=== PATIENT | male | born 1940 | race Caucasian/White ===

== ENCOUNTER 2016-11-19 06:51 | Day surgery (SDC) | payer BC ==
[2016-11-12 15:33] VITALS: BMI 27.0
[~2016-11-19] VITALS: Ht 172.7 cm; Wt 81.8 kg
[~2016-11-19 06:51] MED LIST: ASCA500 PO; ASPI325T45 PO; ATOR-26 PO; CHRO500T5 PO; CIPROFLOXACIN / D5W 400 MG IV SCH; COEN200C4 PO; DUTA1CAP3 PO; IBUP-103 PO; LACTATED RINGER'S 1000ML 1,000 ML IV SCH; LISI-729 PO; MAGN400T6 PO; METO25TA3 PO; MULTCHW PO; NITR0.4S76 SL; OMEP20TA PO; REPA0.5T PO; TAMS0.4C38 PO; VTMD1000 PO
[2016-11-19 07:24] VITALS: BP 131/72; PULSE 61; TEMP 36.5; O2SAT 94; Ht 172.7 cm; Wt 81.8 kg
[2016-11-19] MEDS ORDERED: LIDOCAINE HCL 2% 2 ML VIAL (20MG/ML) ONE (07:42)
[2016-11-19] MEDS ORDERED: FENTANYL CITRATE INJ 50 MCG/1 ML 2 ML VIAL ONE (07:42)
[2016-11-19] MEDS ORDERED: ONDANSETRON INJ 2 MG/ML 2 ML VIAL ONE (07:42)
[2016-11-19] MEDS ORDERED: PROPOFOL IV EMULSION 10 MG/ML 20 ML VIAL IV ONE (07:42)
--- NOTE | 2016-11-19 08:09 | History & Physical Bridge Note ---
H&P Re-Evaluation Bridge Note: I have examined the patient, reviewed the History & Physical and in the interval since the performance of the History & Physical I have noted the following changes of clinical significance: No changes noted
[2016-11-19] MEDS ORDERED: DiphenhydrAMINE HCL 50 MG/ML VIAL ONE (08:44)
[2016-11-19] MEDS ORDERED: EpHEDrine SULFATE 50MG/5ML SYR ONE (09:04)
--- NOTE | 2016-11-19 09:18 | [facility] Post Operative Brief Note ---
Immediate Operative Summary Operative Date Nov 19, 2016. Pre-Operative Diagnosis Bladder Cancer Post-Operative Diagnosis Same as preoperative Procedure(s) Performed Cystoscopy, Bladder Biopsy, Fulgaration Surgeon Dr. Rohit Mccoy Foreign Car Mechanic Surgeon(s) None per surgeon Estimated Blood Loss 0ml Findings bladder tumor medial to left ureteral orifice Specimens A.) Bladder Biopsy
[2016-11-19] MEDS ORDERED: OXYC-57 PO (09:19)
[2016-11-19] MEDS ORDERED: PHEN-876 PO (09:19)
--- NOTE | 2016-11-19 09:20 | Discharge Instructions ---
Discharge Instructions Date of Service Nov 19, 2016. Visit Reason for Visit: Bladder Cancer Discharge Discharge Diagnosis / Problem: BLADDER CANCER Discharge Goals Goal(s): Therapeutic intervention Activity Recommendations Activity Limitations: resume your previous activity (TALKE IT EASY TODAY) Anesthesia . Post Anesthesia Instructions: If you have had General Anesthesia or IV Sedation: * Do not drive today. * Resume driving when surgeon permits. * Do not make important decisions or sign legal documents today. * Call surgeon for: 1. Temperature elevations greater than 101 degrees F. 2. Uncontrollable pain. 3. Excessive bleeding. 4. Persistent nausea and vomiting. 5. Medication intolerance (nausea, vomiting or rash). * For nausea and vomiting use only clear liquids such as: tea, soda, bouillon until nausea subsides, then gradually increase diet as tolerated. * If you have any concerns or questions, call your surgeon's office. If physician is unavailable and it is an emergency, call 911 or go to the nearest emergency room. . Diet Recommendations Recommended Home Diet: resume previous diet Procedures Procedures Performed: Cystoscopy, Bladder Biopsy, Fulgaration Pending Studies Studies pending at discharge: no Medical Emergencies . Who to Call and When: Medical Emergencies: If at any time you feel your situation is an emergency, please call 911 immediately. . Non-Emergent Contact Non-Emergency issues call your: Urologist . . "Provider Documentation" section prepared by Rohit Mccoy. [place] Drug Monitoring Program Search Results: patient reviewed within database
[2016-11-19] MEDS ORDERED: OXYCODONE/ACETAMINOPHEN 5-325 TAB PO PRN (09:30)
--- NOTE | 2016-11-19 09:58 | OPERATIVE REPORT ---
DATE OF OPERATION: 11/19/2016 PREOPERATIVE DIAGNOSIS: Recurrent bladder cancer. POSTOPERATIVE DIAGNOSIS: Same. PROCEDURE: Cystoscopy, bladder biopsy x1, and fulguration of papillary tumor. FINDINGS: Cystoscopic exam revealed normal anterior urethra. Prostatic fossa was moderately obstructing. He did have sort of a ball-valve median lobe. Bladder showed 1 to 2+ trabeculation. There was sort of a shag carpet type appearing tumor medial to the left ureteral orifice. Rest of the bladder was okay. SURGEON: Dr. Mccoy. ANESTHESIA: General. DRAINS: None. COMPLICATIONS: None. SPECIMENS: Bladder biopsy. INDICATIONS: The patient is a 76-year-old white male who on routine surveillance cystoscopy for bladder cancer was found to have a recurrence. He is being brought in now for biopsy and fulguration. PROCEDURE IN DETAIL: After the induction of an adequate general anesthetic and appropriate timeout, the patient was placed in the dorsal lithotomy position. Lower abdomen and genitalia were prepped with Hibiclens and draped in a sterile fashion. Using a 22-[place] cystoscope, routine cystoscopic exam was performed with the above-noted findings with the 30- and 70-degree lenses. Next, since the tumor was very close to the left ureteral orifice, an open-ended catheter was passed up the left ureteral orifice to make sure that I could identify it. One biopsy was taken of this papillary sort of shag carpet type appearing mucosa and then the area was fulgurated with a Bugbee electrode. After completing this, making sure that there was no injury to the left ureteral orifice, the open-ended catheter was removed. There was free drainage of urine from that side. Bladder was then drained. Cystoscope and sheath removed. All needle, sponge and instrument counts were correct at the end of the case. The patient tolerated the procedure well and went to the recovery room in stable condition. I attest to the content of the Intraoperative Record and any orders documented therein. Any exceptio ns are noted below.
[2016-11-19] MEDS ORDERED: FENTANYL CITRATE INJ 50 MCG/1 ML 2 ML VIAL IV PRN (10:00)
[2016-11-19] MEDS ORDERED: ATROPINE SULFATE 0.1 MG/ML 5ML SYR IV PRN (10:00)
[2016-11-19] MEDS ORDERED: EpHEDrine SULFATE INJ 50 MG/ML AMP IV PRN (10:00)
--- NOTE | 2016-11-19 10:00 | Anesthesiology Progress Note ---
Anesthesia Post Op Note Date & Time Nov 19, 2016 at 10:00 Vital Signs Pain Intensity: 0 Vital Signs Past 12 Hours Date Time Temp Pulse Resp B/P Pulse Ox O2 Delivery O2 Flow Rate FiO2 11/19/16 09:55 36.1 51 12 131/65 93 Room Air 11/19/16 09:45 52 12 124/65 93 Room Air 11/19/16 09:35 52 12 133/65 99 Mask 10 11/19/16 09:25 51 12 128/65 99 Mask 10 11/19/16 09:16 36.3 60 12 131/64 97 Mask 10 11/19/16 07:24 36.5 61 20 131/72 94 Room Air Notes Mental Status: alert / awake / arousable, participated in evaluation Pt Amnestic to Procedure: Yes Nausea / Vomiting: adequately controlled Pain: adequately controlled Airway Patency, RR, SpO2: stable & adequate BP & HR: stable & adequate Hydration State: stable & adequate Anesthetic Complications: no major complications apparent
[2016-11-19 10:05] VITALS: BP 139/65; PULSE 55; TEMP 36.6; O2SAT 94
[2016-11-19 10:35] VITALS: BP 117/59; PULSE 51; O2SAT 93
[2016-11-19 11:05] VITALS: BP 114/59; PULSE 57; TEMP 36.1; O2SAT 97
[2017-03-26] MEDS ORDERED: CHRO1TAB5 PO (10:28)
[2017-03-26] MEDS ORDERED: OMEP40CA41 PO (10:28)
[2017-04-22] MEDS ORDERED: OXYC-57 PO (08:59)
[2017-06-03] MEDS ORDERED: PHEN-876 PO (10:02)
[2017-06-03] MEDS ORDERED: OXYC-57 PO (10:02)
== END 2016-11-19 11:15 | disposition home or self-care (01) ==
LOC: C.ACU 06:51
PROVIDERS: ATTEND Urology
DX: C67.9 Malignant neoplasm of bladder, unspecified (principal); N32.89 Other specified disorders of bladder; I25.10 Atherosclerotic heart disease of native coronary artery without angina pectoris; R30.0 Dysuria; K21.9 Gastro-esophageal reflux disease without esophagitis; E11.9 Type 2 diabetes mellitus without complications; N40.1 Benign prostatic hyperplasia with lower urinary tract symptoms; N13.8 Other obstructive and reflux uropathy; I10 Essential (primary) hypertension; N30.00 Acute cystitis without hematuria

== ENCOUNTER → 2017-03-27 | Outpatient (CLI) | payer BC ==
[~2017-03-27] MED LIST changes: +CHRO1TAB5 PO; -CHRO500T5 PO; -CIPROFLOXACIN / D5W 400 MG IV SCH; -IBUP-103 PO; -LACTATED RINGER'S 1000ML 1,000 ML IV SCH; -OMEP20TA PO; +OMEP40CA41 PO; +OXYC-57 PO; +PHEN-876 PO
--- NOTE | 2017-03-27 10:56 | DIAGNOSTIC IMAGING REPORT ---
(CHEST) THORAX WITHOUT CLINICAL HISTORY: 76 years-old Male presenting with SOLITARY PULM NODULE. TECHNIQUE: Multidetector CT imaging of the chest was performed without the use of intravenous contrast. IV contrast: None. COMPARISON: 03/07/2016. CT DOSE: The estimated cumulative dose is 294.96 mGycm. FINDINGS: Supervisor Rod Placing topogram: Unremarkable. On soft tissue windows, multinodular enlargement of the thyroid, consistent with goiter. No axillary, supraclavicular, or mediastinal lymphadenopathy. Atherosclerosis of the aortic arch. Normal heart size. Coronary artery calcification. No pericardial or pleural effusion. Upper abdomen unremarkable. On lung windows, multiple pulmonary nodules again noted, few index below: -Right lower lobe 6 mm solid nodule (series 4 image 174), previously 6 mm -Left lower lobe 7 mm solid nodule (series 4 image 170), previously 6 mm -Left lower lobe 3 mm some solid nodule (series 4 image 164), previously 3 mm -Left upper lobe 5 mm solid nodule (series 4 image 115), previously 5 mm Numerous additional punctate nodules noted bilaterally. Airways patent. On bone windows, multilevel degenerative changes of the thoracic spine. IMPRESSION: 1. Stable bilateral pulmonary nodules measuring up to 7 mm which are essentially unchanged from prior. These are most likely benign. Follow-up per Fleischner Society 2017 recommendations below based on an initial start date of follow-up of September 2015. Please refer to below summary of Fleischner criteria recommendations for follow-up of incidental CT nodules (Jaye Hutton, Guidelines for management of small pulmonary nodules detected on CT scans: A statement from the Fleischner Society, Radiology 237: [phone].) SOLID NODULES Solitary nodule size: <6 mm * Low risk patients: no follow-up needed * high risk patients: optional CT at 12 months Solitary nodule size: 6-8 mm * Low risk patients: follow-up at 6-12 months, then consider further follow-up at 18-24 months * high risk patients: initial follow-up CT at 6-12 months and then at 18-24 months if no change Solitary nodule size: >8 mm * either low or high risk patients - consider follow-up CT at 3 months, and/or CT-PET, and/or biopsy Multiple nodules size: <6 mm * Low risk patients: no routine follow-up * high risk patients: optional CT at 12 months Multiple nodules size: 6-8 mm * Low risk patients: follow-up at 3-6 months, then consider further follow-up at 18-24 months * high risk patients: follow-up at 3-6 months, then at 18-24 months if no change Multiple nodules size: >8 mm * Low risk patients: follow-up at 3-6 months, then consider further follow-up at 18-24 months * high risk patients: follow-up at 3-6 months, then at 18-24 months if no change Note: newly detected indeterminate nodule in persons 35 years of age or older. * Low risk patients: minimal or absent history of smoking and/or other known risk factors * high risk patients: history of smoking or of other known risk factors (e.g. first degree relative with lung cancer, or exposure to asbestos, radon, uranium) * if a nodule up to 8 mm is partly solid or is ground glass further follow-up is required after 24 months to exclude possible slow growing adenocarcinoma (LEILA) SUBSOLID NODULES Solitary pure ground-glass nodule * nodule size <6 mm - no CT follow-up required * nodule size >=6 mm - follow-up CT at 6-12 months, then every 2 years until 5 years Solitary part-solid nodule * nodule size <6 mm - no CT follow-up required * nodule size >=6 mm - follow-up CT at 3-6 months. If unchanged, and solid component remains <6 mm, then annual follow-up for 5 years Multiple subsolid nodules * nodule size <6 mm - follow-up CT at 3-6 months, consider further follow-up at 2 and 4 years if stable * nodule size >=6 mm - follow-up CT at 3-6 months, subsequent management based on the most suspicious nodule(s) Electronically signed by: Sergey Dick M.D. 03/27/2017 10:55 AM Dictated Date/Time: 03/27/2017 10:47 AM
== END | disposition home or self-care (01) ==
LOC: C.CTS 10:21
PROVIDERS: ATTEND Family Medicine
DX: R91.8 Other nonspecific abnormal finding of lung field (principal)

== ENCOUNTER → 2017-04-10 | Outpatient (CLI) | payer BC ==
[2017-04-10 16:17] LABS: BASO % 0.3 %; BASO ABS # 0.02 K/uL (0-0.2); COMPLETE YES; EOS % 3.1 %; HEMATOCRIT 38.8 % (42-52); IG% 0.1 %; LYMPH % 21.5 %; LYMPH ABS # 1.45 K/uL (1.2-3.4); MEAN CELL VOLUME 86.2 fL (80-100); MEAN CORPUSCULAR HEMOGLOBIN 29.1 pg (25-34); MEAN CORPUSCULAR HGB CONC 33.8 g/dl (32-36); MEAN PLATELET VOLUME 10.2 fL (7.4-10.4); MONO % 13.9 %; NEUT % 61.1 %; PLATELET COUNT 142 K/uL (130-400); WHITE BLOOD COUNT 6.74 K/uL (4.8-10.8)
[2017-04-10 16:33] LABS: BLOOD UREA NITROGEN 29 mg/dl (7-18); BUN/CREATININE RATIO 19.1 (10-20); CALCIUM 8.8 mg/dl (8.5-10.1); CARBON DIOXIDE 29 mmol/L (21-32); CHLORIDE 108 mmol/L (98-107); GLUCOSE 132 mg/dl (70-99); POTASSIUM 4.1 mmol/L (3.5-5.1); SODIUM 142 mmol/L (136-145)
== END | disposition home or self-care (01) ==
LOC: C.LAB 15:26
PROVIDERS: ATTEND Urology
DX: C67.9 Malignant neoplasm of bladder, unspecified (principal)

== ENCOUNTER → 2017-04-22 | Day surgery (SDC) | payer BC ==
[2017-03-26 10:31] VITALS: BMI 27.0
[~2017-04-22] VITALS: Ht 172.7 cm; Wt 78.0 kg
[~2017-04-22] MED LIST changes: +ATROPINE SULFATE 0.1 MG/ML 5ML SYR IV PRN; +CIPROFLOXACIN / D5W 400 MG IV SCH; +DEXAMETHASONE SOD INJ 4 MG/ML VIAL ONE; +EpHEDrine SULFATE 50MG/5ML SYR ONE; +EpHEDrine SULFATE INJ 50 MG/ML AMP IV PRN; +FENTANYL CITRATE INJ 50 MCG/1 ML 2 ML VIAL ONE; +HYDROmorphone INJ 2 MG/ML SYR/VIAL IV PRN; +LACTATED RINGER'S 1000ML 1,000 ML IV SCH; +LIDOCAINE HCL 2% 2 ML VIAL (20MG/ML) ONE; +MIDAZOLAM HCL 1 MG/ML 2ML VIAL ONE; +ONDANSETRON INJ 2 MG/ML 2 ML VIAL IV PRN; +ONDANSETRON INJ 2 MG/ML 2 ML VIAL ONE; +OXYCODONE/ACETAMINOPHEN 5-325 TAB PO PRN; +PHENYLEPHRINE 100MCG/ML 5ML SYR IV PRN; +PHENYLEPHRINE 100MCG/ML 5ML SYR ONE; +PROPOFOL IV EMULSION 10 MG/ML 20 ML VIAL IV ONE
[2017-04-22 07:28] VITALS: BP 103/61; PULSE 74; TEMP 36.6; O2SAT 96; Ht 172.7 cm; Wt 78.0 kg
--- NOTE | 2017-04-22 08:59 | Anesthesiology Progress Note ---
Anesthesia Post Op Note Date & Time Apr 22, 2017 at 08:59 Vital Signs Pain Intensity: 0 Vital Signs Past 12 Hours Date Time Temp Pulse Resp B/P (MAP) Pulse Ox O2 Delivery O2 Flow Rate FiO2 04/22/17 07:28 36.6 74 20 103/61 (75) 96 Room Air Notes Mental Status: alert / awake / arousable, participated in evaluation Pt Amnestic to Procedure: Yes Nausea / Vomiting: adequately controlled Pain: adequately controlled Airway Patency, RR, SpO2: stable & adequate BP & HR: stable & adequate Hydration State: stable & adequate Anesthetic Complications: no major complications apparent
--- NOTE | 2017-04-22 09:01 | Discharge Instructions ---
Discharge Instructions Date of Service Apr 22, 2017. Visit Reason for Visit: Bladder Tumor Discharge Discharge Diagnosis / Problem: bladder tumor Discharge Goals Goal(s): Therapeutic intervention Activity Recommendations Activity Limitations: resume your previous activity (take it easy today) Anesthesia . Post Anesthesia Instructions: If you have had General Anesthesia or IV Sedation: * Do not drive today. * Resume driving when surgeon permits. * Do not make important decisions or sign legal documents today. * Call surgeon for: 1. Temperature elevations greater than 101 degrees F. 2. Uncontrollable pain. 3. Excessive bleeding. 4. Persistent nausea and vomiting. 5. Medication intolerance (nausea, vomiting or rash). * For nausea and vomiting use only clear liquids such as: tea, soda, bouillon until nausea subsides, then gradually increase diet as tolerated. * If you have any concerns or questions, call your surgeon's office. If physician is unavailable and it is an emergency, call 911 or go to the nearest emergency room. . Diet Recommendations Recommended Home Diet: resume previous diet Procedures Procedures Performed: Cystoscopy, Bladder biopsy and fulguration Pending Studies Studies pending at discharge: no Medical Emergencies . Who to Call and When: Medical Emergencies: If at any time you feel your situation is an emergency, please call 911 immediately. . Non-Emergent Contact Non-Emergency issues call your: Urologist Call Non-Emergent contact if: temperature is above 101.5, your pain is not controlled . . "Provider Documentation" section prepared by Rohit Mccoy. . [place] Drug Monitoring Program Search Results: patient reviewed within database
--- NOTE | 2017-04-22 09:13 | [facility] Operative Report ---
Operative Report Operative Date Apr 22, 2017. Pre-Operative Diagnosis Bladder Cancer Post-Operative Diagnosis same Procedure(s) Performed Cystoscopy, Bladder biopsy and fulguration Surgeon Dr. Mccoy Animal Husbandman Surgeon(s) none Estimated Blood Loss 0 ml Findings Cystoscopic exam showed a normal anterior urethra. Prostatic fossa was moderately obstructing. Bladder showed irregular pulse on the right lateral wall there was 2+ trabeculation with cellules both ureteral orifices were effluxing clear urine Specimens a. bladder tumor biopsy Drains none Anesthesia general Complication(s) None Disposition Recovery Room / PACU Indications Patient is a 76-year-old white male being brought in for bladder biopsy and fulguration of abnormal appearing bladder mucosa. 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 After the induction of an adequate general anesthetic and appropriate timeout patient was placed in the dorsal lithotomy position. Lower abdomen and genitalia were prepped with Hibiclens draped in a sterile fashion. Using a 22 [place] cystoscope routine cystoscopic exam was performed with the above-noted findings. Next the abnormal mucosa on the right lateral wall was biopsied with cold cup biopsy forceps and the entire area was fulgurated for hemostasis. Care was taken to avoid injury to the ureteral orifice. After fulgurating the entire abnormal area reinspection showed no bleeding patient's bladder was then drained cystoscope and sheath were removed. Patient tolerated the procedure well and was taken to the recovery room in stable condition. I attest to the content of the Intraoperative Record and any orders documented therein. Any exceptions are noted below.
[2017-04-22 09:45] VITALS: BP 112/59; PULSE 54; TEMP 36.4; O2SAT 94
[2017-04-22 10:15] VITALS: BP 119/56; PULSE 49; O2SAT 97
[2017-04-22 10:45] VITALS: BP 123/58; PULSE 54; TEMP 36.5; O2SAT 97
== END | disposition home or self-care (01) ==
LOC: C.ACU 06:48
PROVIDERS: ATTEND Urology
DX: C67.2 Malignant neoplasm of lateral wall of bladder (principal); N39.0 Urinary tract infection, site not specified; N52.9 Male erectile dysfunction, unspecified; R35.1 Nocturia; E11.9 Type 2 diabetes mellitus without complications; I25.10 Atherosclerotic heart disease of native coronary artery without angina pectoris; I51.9 Heart disease, unspecified; I10 Essential (primary) hypertension; K22.70 Barrett's esophagus without dysplasia; E78.5 Hyperlipidemia, unspecified; Z82.49 Family history of ischemic heart disease and other diseases of the circulatory system; Z83.3 Family history of diabetes mellitus; Z84.1 Family history of disorders of kidney and ureter

== ENCOUNTER → 2017-05-20 | Outpatient (CLI) | payer BC ==
[~2017-05-20] MED LIST changes: -ATROPINE SULFATE 0.1 MG/ML 5ML SYR IV PRN; -CIPROFLOXACIN / D5W 400 MG IV SCH; -DEXAMETHASONE SOD INJ 4 MG/ML VIAL ONE; -EpHEDrine SULFATE 50MG/5ML SYR ONE; -EpHEDrine SULFATE INJ 50 MG/ML AMP IV PRN; -FENTANYL CITRATE INJ 50 MCG/1 ML 2 ML VIAL ONE; -HYDROmorphone INJ 2 MG/ML SYR/VIAL IV PRN; -LACTATED RINGER'S 1000ML 1,000 ML IV SCH; -LIDOCAINE HCL 2% 2 ML VIAL (20MG/ML) ONE; -MIDAZOLAM HCL 1 MG/ML 2ML VIAL ONE; -ONDANSETRON INJ 2 MG/ML 2 ML VIAL IV PRN; -ONDANSETRON INJ 2 MG/ML 2 ML VIAL ONE; -OXYCODONE/ACETAMINOPHEN 5-325 TAB PO PRN; -PHENYLEPHRINE 100MCG/ML 5ML SYR IV PRN; -PHENYLEPHRINE 100MCG/ML 5ML SYR ONE; -PROPOFOL IV EMULSION 10 MG/ML 20 ML VIAL IV ONE
[2017-05-20 12:16] LABS: BASO % 0.5 %; BASO ABS # 0.03 K/uL (0-0.2); COMPLETE YES; HEMATOCRIT 40.4 % (42-52); IG% 0.2 %; LYMPH % 23.7 %; LYMPH ABS # 1.49 K/uL (1.2-3.4); MEAN CELL VOLUME 85.8 fL (80-100); MEAN CORPUSCULAR HEMOGLOBIN 29.3 pg (25-34); MEAN CORPUSCULAR HGB CONC 34.2 g/dl (32-36); MEAN PLATELET VOLUME 10.5 fL (7.4-10.4); MONO % 8.9 %; NEUT % 62.7 %; PLATELET COUNT 146 K/uL (130-400); RED BLOOD COUNT 4.71 M/uL (4.7-6.1); WHITE BLOOD COUNT 6.29 K/uL (4.8-10.8)
[2017-05-20 12:18] LABS: URINE APPEARANCE CLEAR (CLEAR); URINE BILIRUBIN NEG (NEG); URINE COLOR YELLOW; URINE NITRITE NEG (NEG); URINE PH 5.5 (4.5-7.5); URINE SPECIFIC GRAVITY 1.016 (1.000-1.030); UROBILINOGEN NEG (NEG)
[2017-05-20 12:24] LABS: MANUAL MICROSCOPIC REQUIRED? NO; REVIEW REQ? NO
[2017-05-20 12:48] LABS: BLOOD UREA NITROGEN 28 mg/dl (7-18); BUN/CREATININE RATIO 19.6 (10-20); CALCIUM 9.7 mg/dl (8.5-10.1); CARBON DIOXIDE 28 mmol/L (21-32); CHLORIDE 105 mmol/L (98-107); GLUCOSE 94 mg/dl (70-99); POTASSIUM 4.5 mmol/L (3.5-5.1); SODIUM 138 mmol/L (136-145)
== END | disposition home or self-care (01) ==
LOC: C.LAB 11:01
PROVIDERS: ATTEND Urology
DX: C67.9 Malignant neoplasm of bladder, unspecified (principal)

== ENCOUNTER → 2017-07-19 | Outpatient (CLI) | payer BC ==
[~2017-07-19] MED LIST changes: -ASCA500 PO; -MULTCHW PO; +NITR0.1S SL; -NITR0.4S76 SL; +NUTR1TAB3 PO; -OXYC-57 PO; -PHEN-876 PO
== END | disposition home or self-care (01) ==
LOC: C.LABSPEC 15:42
PROVIDERS: ATTEND Nurse Practitioner Adult Health
DX: C67.9 Malignant neoplasm of bladder, unspecified (principal)

== ENCOUNTER → 2017-09-26 | Outpatient (CLI) | payer BC | END | disposition home or self-care (01) | LOC: C.PATHSPEC 17:04 | PROVIDERS: ATTEND Urology | DX: N40.1 Benign prostatic hyperplasia with lower urinary tract symptoms (principal) ==

== ENCOUNTER → 2018-01-09 | Outpatient (CLI) | payer BC ==
[~2018-01-09] MED LIST changes: +ASPECOTC PO; -ASPI325T45 PO; -CHRO1TAB5 PO; -MAGN400T6 PO
== END | disposition home or self-care (01) ==
LOC: C.PATHSPEC 10:41
PROVIDERS: ATTEND Urology
DX: N40.0 Benign prostatic hyperplasia without lower urinary tract symptoms (principal)

== ENCOUNTER → 2018-01-27 | Day surgery (SDC) | payer BC ==
[2018-01-14 15:03] VITALS: Ht 172.7 cm; Wt 77.3 kg
[~2018-01-27] VITALS: Ht 172.7 cm; Wt 77.3 kg
[~2018-01-27] MED LIST changes: +COEN1CAP37 PO; -COEN200C4 PO; +LIDOCAINE HCL 2% 2 ML VIAL (20MG/ML) ONE; +MIDAZOLAM HCL 1 MG/ML 2ML VIAL ONE; +OMEP20TA PO; -OMEP40CA41 PO; +ONDANSETRON INJ 2 MG/ML 2 ML VIAL ONE; +PROPOFOL IV EMULSION 10 MG/ML 20 ML VIAL ONE; -REPA0.5T PO; +REPA1TAB8 PO
--- NOTE | 2018-01-27 14:01 | Endo History and Physical ---
History & Physical Date of Service: January 27, 2018. Chief Complaint: Damon's esophagus Referring Physician: Pb Han History of Present Illness 77 yo CM who presents for EGD secondary to Damon's Esophagus. Past Medical History Diabetes, Angioplasty/Stent, Male Genitourinary Prob., Reflux, High Cholesterol , Hypertension Past Surgical History Hx Cardiac Surgery: Yes (CARDIAC CATH 1 STENT-1997, 2010 NO STENT) Hx Internal Defibrillator: No Hx Pacemaker: No Hx Abdominal Surgery: Yes (UMBILICAL FISTULA REPAIR) Hx of Implantable Prosthesis: No Hx Post-Op Nausea and Vomiting: No Hx Cancer Surgery: No Hx Thoracic Surgery: No Hx Orthopedic: Yes (LUMBAR SURG ) Hx Urinary Tract Surgery: Yes (TURBT X5) Family History None Social History Smoking Status: Never Smoker Hx Substance Use: No Hx Alcohol Use: No Allergies Coded Allergies: Eggplant (Verified Allergy, Intermediate, HIVES, 01/27/18) [place] (Verified Allergy, Intermediate, HIVES, 01/27/18) Olmesartan (Verified Adverse Reaction, Intermediate, DIZZINESS, 01/27/18) Amoxicillin (Verified Adverse Reaction, Mild, DIARRHEA, 01/27/18) Erythromycin (Verified Adverse Reaction, Mild, DIARRHEA, 01/27/18) Sulfa Antibiotics (Verified Adverse Reaction, Mild, DIARRHEA, 01/27/18) Current Medications Reported Home Medications Medications Dose Route/Sig Max Daily Dose Days Date Category Dose Instructions Omeprazole 20 Mg Tab 1 Tab PO DAILY 90 01/14/18 Reported Co Q-10 (Coenzyme Q10 (Ubidecarenone)) 200 Mg Cap 1 Cap PO DAILY 01/14/18 Reported Repaglinide 1 Mg Tab 1 Tab PO TIDM 01/14/18 Reported Bladder 2.2 (Nutritional Supplements) 1 Tab Tab 1 Tab PO BID 07/10/17 Reported Dutasteride 0.5 Mg Cap 1 Cap PO HS 11/12/16 Reported Vitamin D3 (Cholecalciferol) 1,000 Inter.unit Tab 2,000 Interunit PO QPM 11/12/16 Reported Zestril (Lisinopril) 5 Mg Tab 2.5 Mg PO HS 06/18/16 Reported Flomax (Tamsulosin Hcl) 0.4 Mg Cap 0.8 Mg PO HS 05/12/15 Reported Aspirin 325 Mg Tab 325 Mg PO QAM 05/12/15 Reported PER PT TO CONTINUE TO TAKE PER CARDIOLOGY Nitroglycerin Lingual (Nitroglycerin) 0.4 Mg/[place] Spr 1 [place] SL DIRECTED 03/10/15 Reported Lipitor (Atorvastatin Calcium) 80 Mg Tab 80 Mg PO QPM 01/05/15 Reported Toprol-Xl (Metoprolol Succinate) 25 Mg Tabcr 25 Mg PO QAM 07/26/14 Reported Vital Signs Weight (Kilograms): 77.27 Height (Feet): 5 Height (Inches): 8 Date Time Temp Pulse Resp B/P (MAP) Pulse Ox O2 Delivery O2 Flow Rate FiO2 01/27/18 13:29 36.5 56 18 125/71 (89) 97 Room Air Physical Exam General Appearance: WD/WN, no apparent distress Respiratory/Chest: Auscultation: breath sounds normal Cardiovascular: Heart Auscultation: RRR Abdomen: Bowel Sounds: normal Inspection & Palpation: soft, non-distended, no tenderness, guarding & rebound Assessment and Plan Assessment: 77 yo CM who presents for EGD secondary to Damon's Esophagus. Plan: Proceed with EGD.
--- NOTE | 2018-01-27 14:33 | GI REPORT ---
Patient Name: Kasi Costello Procedure Date: 01/27/2018 1:41 PM Date of : 1940 Admit Type: Outpatient Age: 77 Gender: Male Attending MD: Wayne Sosa DO Procedure: Upper GI endoscopy Providers: Wayne Sosa DO Referring MD: Michael Snyder Indications: Follow-up of Damon's esophagus Medicines: Monitored Anesthesia Care Complications: No immediate complications. Estimated Blood Loss: Estimated blood loss: none. Procedure: Pre-Anesthesia Assessment: - Prior to the procedure, a History and Physical was performed, and patient medications and allergies were reviewed. The patient's tolerance of previous anesthesia was also reviewed. The risks and benefits of the procedure and the sedation options and risks were discussed with the patient. All questions were answered, and informed consent was obtained. Prior Anticoagulants: The patient has taken aspirin, last dose was 1 day prior to procedure. ASA Grade Assessment: III - A patient with severe systemic disease. After reviewing the risks and benefits, the patient was deemed in satisfactory condition to undergo the procedure. After obtaining informed consent, the endoscope was passed under direct vision. Throughout the procedure, the patient's blood pressure, pulse, and oxygen saturations were monitored continuously. The Scope was introduced through the mouth, and advanced to the second part of duodenum. The upper GI endoscopy was accomplished without difficulty. The patient tolerated the procedure well. Findings: There were esophageal mucosal changes suggestive of short-segment Damon's esophagus present at the gastroesophageal junction. The maximum longitudinal extent of these mucosal changes was 1 cm in length. Mucosa was biopsied with a cold forceps for histology. One specimen bottle was sent to pathology. The entire examined stomach was normal. The examined duodenum was normal. Impression: - Esophageal mucosal changes suggestive of short-segment Damon's esophagus. Biopsied. - Normal stomach. - Normal examined duodenum. Recommendation: - Resume previous diet. - Continue present medications. - Await pathology results. - Return to primary care physician as previously scheduled. Wayne Sosa DO 01/27/2018 2:32:42 PM This report has been signed electronically. Note Initiated On: 01/27/2018 1:41 PM Number of Addenda: 0 I attest to the content of the Intraoperative Record and orders documented therein, exceptions below {[id number]}
--- NOTE | 2018-01-27 14:52 | Anesthesiology Progress Note ---
Anesthesia Post Op Note Date & Time January 27, 2018 at 14:52 Vital Signs Pain Intensity: 0 Vital Signs Past 12 Hours Date Time Temp Pulse Resp B/P (MAP) Pulse Ox O2 Delivery O2 Flow Rate FiO2 01/27/18 14:45 52 16 105/48 (67) 93 Room Air 3 01/27/18 14:30 54 16 100/45 (63) 97 Oxymask 3 01/27/18 13:29 36.5 56 18 125/71 (89) 97 Room Air Notes Mental Status: alert / awake / arousable, participated in evaluation Pt Amnestic to Procedure: Yes Nausea / Vomiting: adequately controlled Pain: adequately controlled Airway Patency, RR, SpO2: stable & adequate BP & HR: stable & adequate Hydration State: stable & adequate Anesthetic Complications: no major complications apparent
[2018-01-27 15:00] VITALS: BP 106/58; PULSE 55; O2SAT 95
--- NOTE | 2018-01-27 15:21 | Discharge Instructions ---
Endoscopy Patient Instructions Date / Procedure(s) Performed January 27, 2018. EGD Allergy Information Coded Allergies: Eggplant (Verified Allergy, Intermediate, HIVES, 01/27/18) [place] (Verified Allergy, Intermediate, HIVES, 01/27/18) Olmesartan (Verified Adverse Reaction, Intermediate, DIZZINESS, 01/27/18) Amoxicillin (Verified Adverse Reaction, Mild, DIARRHEA, 01/27/18) Erythromycin (Verified Adverse Reaction, Mild, DIARRHEA, 01/27/18) Sulfa Antibiotics (Verified Adverse Reaction, Mild, DIARRHEA, 01/27/18) Discharge Date / Findings January 27, 2018. Damon's esophagus s/p biopsies Medication Instructions Stopped Medication(s): Aspirin 325mg taken on 01/26/18 OK to resume all medications today as prescribed Reported Home Medications Medications Dose Route/Sig Max Daily Dose Days Date Category Dose Instructions Omeprazole 20 Mg Tab 1 Tab PO DAILY 90 01/14/18 Reported Co Q-10 (Coenzyme Q10 (Ubidecarenone)) 200 Mg Cap 1 Cap PO DAILY 01/14/18 Reported Repaglinide 1 Mg Tab 1 Tab PO TIDM 01/14/18 Reported Bladder 2.2 (Nutritional Supplements) 1 Tab Tab 1 Tab PO BID 07/10/17 Reported Dutasteride 0.5 Mg Cap 1 Cap PO HS 11/12/16 Reported Vitamin D3 (Cholecalciferol) 1,000 Inter.unit Tab 2,000 Interunit PO QPM 11/12/16 Reported Zestril (Lisinopril) 5 Mg Tab 2.5 Mg PO HS 06/18/16 Reported Flomax (Tamsulosin Hcl) 0.4 Mg Cap 0.8 Mg PO HS 05/12/15 Reported Aspirin 325 Mg Tab 325 Mg PO QAM 05/12/15 Reported PER PT TO CONTINUE TO TAKE PER CARDIOLOGY Nitroglycerin Lingual (Nitroglycerin) 0.4 Mg/[place] Spr 1 [place] SL DIRECTED 03/10/15 Reported Lipitor (Atorvastatin Calcium) 80 Mg Tab 80 Mg PO QPM 01/05/15 Reported Toprol-Xl (Metoprolol Succinate) 25 Mg Tabcr 25 Mg PO QAM 07/26/14 Reported Provider Instructions Activity Restrictions - No exercising or heavy lifting for 24 hours. - Do not drink alcohol the day of the procedure. - Do not drive a car or operate machinery until the day after the procedure. - Do not make any important decisions or sign important papers in 24 hours after the procedure. Following Day: - Return to full activity which may include returning to work/school. Diet Start your diet with liquids and light foods (jello, soup, juice, toast). Then eat your usual diet if not nauseated. Treatment For Common After Affects For mild abdominal pain, bloating, or excessive gas: - Rest - Eat lightly - Lie on right side Follow-Up Information Follow-up with Pb Han as scheduled Anesthesia Information What You Should Know You have had a procedure that required some medicine to reduce anxiety and discomfort. This treatment is called moderate sedation. After receiving the treatment, you may be sleepy, but you will be able to breathe on your own. The effects of the treatment may last for several hours. Follow these instructions along with Activity/Diet recommendations noted above: * Do NOT do anything where dizziness or clumsiness would be dangerous. * Rest quietly at home today, then you can be up and about tomorrow. * Have a responsible person stay with you the rest of today. * You may have had an I.V. today. If so, you may take the dressing off later today. Recommendations Call your doctor if: * Trouble breathing * Continuous vomiting for more than 24 hours * Temperature above 101 degrees * Severe abdominal pain or bloating * Pain not relieved by pain medicine ordered * There is increased drainage or redness from any incision * A large amount of rectal bleeding greater than 2-3 tablespoons. (If you had a polyp/s removed or have hemorrhoids, a small amount of blood - from the rectum is to be expected.) * You have any unanswered questions or concerns. IN THE EVENT OF A SERIOUS EMERGENCY, GO TO THE NEAREST EMERGENCY ROOM Your discharge instructions were prepared by provider Wayne Sosa. Patient Instructions Signature Page Kasi Costello Patient (or Guardian) Signature/Date: I have read and understand the instructions given to me by my caregivers. Caregiver/RN/Doctor Signature/Date: The above-named patient and/or guardian has received patient instructions on this date. + Original Patient Signature Page (only) stays with chart. Please make copy for patient.
== END | disposition home or self-care (01) ==
LOC: C.GI 12:54
PROVIDERS: ATTEND Internal Medicine
DX: Z09 Encounter for follow-up examination after completed treatment for conditions other than malignant neoplasm (principal); I25.10 Atherosclerotic heart disease of native coronary artery without angina pectoris; E11.9 Type 2 diabetes mellitus without complications; Z88.2 Allergy status to sulfonamides; Z88.1 Allergy status to other antibiotic agents; I10 Essential (primary) hypertension; E78.00 Pure hypercholesterolemia, unspecified; Z98.890 Other specified postprocedural states; Z91.018 Allergy to other foods; Z79.899 Other long term (current) drug therapy

== ENCOUNTER → 2018-04-17 | Outpatient (CLI) | payer BC ==
[~2018-04-17] MED LIST changes: +DUTA1CAP17 PO; -DUTA1CAP3 PO; -LIDOCAINE HCL 2% 2 ML VIAL (20MG/ML) ONE; -MIDAZOLAM HCL 1 MG/ML 2ML VIAL ONE; -ONDANSETRON INJ 2 MG/ML 2 ML VIAL ONE; -PROPOFOL IV EMULSION 10 MG/ML 20 ML VIAL ONE
== END | disposition home or self-care (01) ==
LOC: C.PATHSPEC 10:23
PROVIDERS: ATTEND Urology
DX: C67.9 Malignant neoplasm of bladder, unspecified (principal)

== ENCOUNTER 2019-07-03 11:52 | Observation (INO) ==
[2019-07-03] MEDS ORDERED: HEPARIN (PORCINE) 1000 UNIT/ML 10 ML (CATH LAB USE ONLY) ONE (11:57)
[2019-07-03] MEDS ORDERED: NiCARDipine HCL INJ 2.5 MG/ML 10 ML AMP ONE (11:57)
[2019-07-03] MEDS ORDERED: fentaNYL citrate 100 MCG/2 ML VIAL ONE (11:58)
[2019-07-03] MEDS ORDERED: MIDAZOLAM HCL 1 MG/ML 2ML VIAL ONE (11:58)
[2019-07-03] MEDS ORDERED: NITROGLYCERIN/D5W 100MCG/ML 20ML SYR ONE (11:58)
--- NOTE | 2019-07-03 12:31 | Pre Anesthesia Assessment ---
Date of Service July 03, 2019 Pre Sedation Assessment Vital Signs Temp Pulse Resp BP Pulse Ox 07/03/19 12:00 98.1 F 53 L 16 138/57 L 99 Cardiovascular RRR, no murmur, no edema Respiratory normal respiratory effort, lungs clear to auscultation Pre-Sedation Airway Assessment Smoking Status: Never smoker Hx Sleep Apnea: No Hx Difficult Intubation: No Short, Thick Neck: No Oral Cavity: + WNL Mallampati Class: III ASA: ASA3 NPO Status Date of Last Intake of Fluids: 07/03/19 Time of Last Intake of Fluids: 06:30 Last Oral Intake of Fluids Comment: sips with pills Date of Last Intake of Solid Food: 07/02/19 Time of Last Intake of Solid Foods: 21:30 Procedure Planning Contraindications for Sedation: none Current Medications Reviewed: Yes Notes The planned sedation has been discussed with the patient. Informed Consent was obtained. I have identified the patient, determined the appropriateness of sedation and have assessed the patient immediately prior to the procedure. All medicine(s) and interventions are by my order.
--- NOTE | 2019-07-03 12:34 | History & Physical Report ---
Date of Service July 03, 2019 Assessment & Plan (1) CAD (coronary artery disease): Proceed with cardiac catheterization. History of Present Illness Primary Care Provider: Pb Han DO Mr. 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 Patient with exertional chest symptoms primarily with exercising on stationary bike. Yesterday underwent stress test and was unable to go several minutes before developed limiting chest pain and ST depressions. Allergies Allergy/AdvReac Type Severity Reaction Status Date / Time peach Allergy Intermediate HIVES Verified 07/02/19 16:07 ciprofloxacin [From Cipro] Allergy Blister Verified 07/02/19 16:07 olmesartan AdvReac Intermediate DIZZINESS Verified 07/02/19 16:07 amoxicillin AdvReac Mild DIARRHEA Verified 07/02/19 16:07 erythromycin base AdvReac Mild DIARRHEA Verified 07/02/19 16:07 Sulfa (Sulfonamide AdvReac Mild DIARRHEA Verified 07/02/19 16:07 Antibiotics) Eggplant Allergy Intermediate HIVES Uncoded 07/02/19 16:07 Home Medications Home Medications Medication Instructions Recorded Confirmed Type metoprolol succinate 25 mg PO QAM #30 tab 07/26/14 07/02/19 History nitroglycerin 400 mcg SUBLINGUAL DAILY PRN #0 03/10/15 07/02/19 History aspirin 325 mg PO QAM #0 05/12/15 07/02/19 History tamsulosin [Flomax] 0.8 mg PO HS #0 cap 05/12/15 07/02/19 History lisinopril 2.5 mg PO HS #0 tab 06/18/16 07/02/19 History cholecalciferol (vitamin D3) 1,000 unit PO PM #0 11/12/16 07/02/19 History dutasteride 0.5 mg PO HS #0 11/12/16 07/02/19 History coenzyme Q10 200 mg PO QAM #0 01/14/18 07/02/19 History omeprazole 20 mg PO QAM 90 Days #90 tab 01/14/18 07/02/19 History repaglinide [Prandin] 1 mg PO TID #0 01/14/18 07/02/19 History atorvastatin 80 mg tablet 80 mg PO PM #90 tab 05/07/19 07/02/19 Rx xtmqjvac-ojoy-bbqvy acid 200 1 tab PO BID #0 tab 05/27/19 07/02/19 History mcg-lycopene 5 mg-boron 250 mcg tablet Past Med/Surg History Social History Preferred Language: Spanish Communication Ability: Effective Contact Lens Lathe Operator Required: No Beliefs That Will Affect Care: None Current Living Situation: Alone current occupational status: retired Other Information That Helps Us Care for You: No Feels Safe at Home: Yes Safety Concerns: Feels Safe At This Time Smoking Status: Never smoker Second Hand Exposure: Yes ; Hx Alcohol Use: No Hx Substance Use: No Review of Systems All systems reviewed & are unremarkable except as noted in HPI & below Physical Exam Physical Exam: General: Comfortable, no acute distress HEENT: Sclerae anicteric, mucous membranes moist Lungs: Clear to auscultation bilaterally, no rhonchi or wheezes Cardiac: Regular rate and rhythm, no murmurs. No JVD. Abdomen: Soft, nontender, nondistended, positive bowel sounds. Extremities: Warm, well perfused, no edema. 2+ radial pulses Skin: No rashes or lesions. Neuro: Nonfocal Psych: Alert orient x3, normal affect and mood ASA Classification ASA ASA3 Results & Data Vital Signs (Past 12 Hours) Vital Signs Temp Pulse Resp BP Pulse Ox 07/03/19 12:00 98.1 F 53 L 16 138/57 L 99
[2019-07-03] MEDS ORDERED: CLOPIDOGREL BISULFATE 300 MG TAB ONE (13:22)
--- NOTE | 2019-07-03 14:00 | Post Anesthesia Assessment ---
Date of Service July 03, 2019 Post Sedation Assessment Vital Signs Temp Pulse Resp BP Pulse Ox 07/03/19 13:40 50 L 20 122/61 92 07/03/19 13:35 50 L 20 128/59 L 92 07/03/19 13:30 50 L 20 118/67 92 07/03/19 12:00 98.1 F 53 L 16 138/57 L 99 Recovery Score Activity: Moves 4 extremities Respiration: Deep Breath/Cough Circulation: +/-20% PreAnes Value Consciousness: Fully Awake Oxygen Saturation: O2 needed for >90% Post Anesthesia Score: 6 Discharge Sedation Level of Care: Fast Track Phase II Post Sedation Plan On clinical assessment, the patient appears to have tolerated the sedation without complications. Patient is recovering as anticipated. Patient will continue to be monitored by nursing and may be discharged when sedation discharge criteria are met per below protocol. Upon Completions of procedure and additional 15 minutes continue every 5 minute vital signs and the P.A.R. score; then discharge to a Phase I or Fast Track to Phase II per the following guidelines: * Discharge Patient to appropriate Phase II area if PAR is 8 or greater or return to pre- procedure baseline. The post - procedure orders will be as directed. * If PAR score is less than 8 or not return to pre-procedure baseline then patient will follow Phase I monitoring till PAR is reached for Phase II. The Phase I may be done in procedure room or may call to secure a Phase I area. * If naloxone or flumazenil are used for reversal, hold in Phase I for continued monitoring from when last reversal dose was given for a minimum of 60 minutes or longer pending the nurse and/or physician discretion of patient condition before discharge to Phase II. Please call the Sedation Physician to re-evaluate and complete post-note for discharge to Phase II area. Do NOT discharge from procedure sedation or Phase 1 until post- sedation evaluation note is complete by procedure /sedation MD Sedation Discharge Instructions to be given to the patient at discharge to home.
[2019-07-03] MEDS ORDERED: ONDANSETRON INJ 2 MG/ML 2 ML VIAL IV PRN (14:02)
--- NOTE | 2019-07-03 14:02 | Post Operative Brief Note ---
Cardiology Brief Post Op Date of Surgery July 03, 2019 Pre & Post Diagnosis Operation Date: 07/03/19 12:30 <No data on this case meets the specified criteria> Procedure -- Analysis Director Domingo Thakur MD R And D Lab Technician [place] Estimated Blood Loss 15 Findings Consistent with Post-Op Diagnosis Severe single vessel disease - 90+% diffuse proximal to mid LAD with mid LAD in-stent restenosis. Successful PCI with single STEFANIE (2.75 x 33 Xience; post-dilated with 3.0 NC). Anesthesia Type RN Sedation Complications none Disposition Disposition: PCU
[2019-07-03] MEDS ORDERED: GLUCAGON FOR INJ 1 MG VIAL SQ PRN (14:06)
[2019-07-03] MEDS ORDERED: CARBOHYDRATES FOR HYPOGLYCEMIA PO PRN (14:06)
[2019-07-03] MEDS ORDERED: DEXTROSE 50% 50 ML SYRINGE IV PRN (14:06)
[2019-07-03] MEDS ORDERED: GLUCOSE 10 TABS/TUBE PO PRN (14:06)
[2019-07-03] MEDS ORDERED: GLUCOSE 40% GEL 15 GM TUBE PO PRN (14:06)
[2019-07-03] MEDS ORDERED: SODIUM CHLORIDE 0.9% 1000ML 1,000 ML IV SCH (14:15)
--- NOTE | 2019-07-03 15:21 | Cardiac Catheterization ---
[facility] Data: Senior Industrial Engineer Cardiac Status Clinical evaluation leading to the procedure CAD Presenation: Positive Stress Test Anginal Classification: CCS III Heart Failure: No Cardiogenic Shock within 24 Hours: No Cardiac Arrest within 24 Hours: No Imaging Studies Past 6 Months: Yes Stress Studies Past 6 Months: Yes Stress Echocardiogram: Yes - Positive and Risk/Extent of Ischemia (High) Diagnostic Physicians Name: Domingo Thakur MD Status: Elective Closure Device Percutaneous Entry Location: Radial Closure Device: Radial Band Recommendations: PCI without planned CABG PCI Indication: + Stress Test Lesion Segment Name: proximal to mid LAD Culprit Artery: Yes Stenosis Prior to Rx (%): 90 Chronic Total Occlusion: No IVUS: No FFR: No Pre-Procedure DEREK Flow: 3 Previously Treated Lesion: Timeframe: greater than 2 years Treated with Stent: Yes In-Stent Restenosis: Yes In-Stent Thrombosis: No Stent Type: Non-STEFANIE Yes Lesion Length (mm): 25 Thrombus Present: No Bifurcation Lesion: No Guidewire Across Lesion: Stenosis Post-Procedure (%): 0 Post-Procedure DEREK Flow: 3 Devices(s) Deployed: Yes Yes Intraprocedure Events Significant Disection: No Perforation: No Cardiac Cath Procedure Full Procedure Date July 03, 2019 Pre-Procedure Diagnosis Pre-Procedure Diagnosis: Positive Stress Test AUC Score AUC Score: 7 Post-Procedure Diagnosis Post-Procedure Diagnosis: Severe CAD and Successful PCI Procedure(s) Performed Procedure(s) Performed: Coronary Angiography, Left Heart Cath and Drug Eluting Stent Vocal Music Teacher Domingo Thakur MD Paint Roller Cover Machine Setter(s) Avinash Estimated Blood Loss Estimated Blood Loss: 15 Medication(s) Medication(s): Clopidogrel, Fentanyl, Heparin, Lidocaine 1%, Nicardipine, Nitroglycerin and Versed Summary of Findings Indication: Exertional chest pain, abnormal stress test Access: 6 Fr right radial artery Catheters: [place], JR4, EBU 3.5 guide Findings: LM -20% distal disease at bifurcation LAD -moderate caliber vessel, calcified proximally with diffuse 60% disease, focal 90% in-stent restenosis in mid segment stent at takeoff of small second diagonal. 40% mid segment disease just after stent. 50% latemid stenosis just after the third diagonal. Distal luminal irregularities as wraps around apex. Moderate caliber first diagonal without significant disease. Circumflex -large caliber vessel, proximal to mid luminal irregularities. Large OM 2 without significant disease. RCA -dominant, moderate caliber vessel, 30% mid segment disease, distal luminal irregularities LVEDP -10 -- PCI -- Antithrombotic therapy: Heparin, clopidogrel Procedure: Left main cannulated with EBU 3.5 guide Flour Broker 50 wire passed across lesion into distal vessel Proximal to mid LAD lesion predilated with 2.5 compliant balloon Dilated lesion stented with 2.75 x 33 mm Xience Shanti drug-eluting stent Stent post-dilated with 3.0 noncompliant balloon IC vasodilators administered for spasm Post procedure DEREK 3 flow, stent well expanded with minimal residual stenosis and no apparent cardiac complications. Arterial Closure: TR Summary: 1. Severe single vessel coronary artery disease -Diffuse proximal LAD disease with 90% in-stent mid LAD restenosis. Residual moderate latemid LAD disease. 2. Normal intracardiac filling pressure 3. Successful PCI of proximal to mid LAD with single drug-eluting stent overlapping proximal aspect of prior stent (2.75 x 33 mm Xience Shanti; postdilated with 3.0 NC). Recommendations: To PCU for continued monitoring Loaded with Clopidogrel 600 Mg in in the Senior Industrial Engineer Continue dual-antiplatelet therapy for at least 6 months Continue statin, and ASCVD risk factor modification Consult cardiac Rehab Hemodynamics Rest Ao:: -- Final Ao: -- LV: -- Recommendations Recommendations: PCI without planned CABG Specimens Specimens: None Anesthesia moderate Procedural Complication(s) None Disposition PCU I attest to the content of the Intraoperative Record and any orders documented therein. Any exceptions are noted below.
[2019-07-03] MEDS: INSULIN ASPART 100 UNITS/ML 3 ML PEN SC SCH ×2 (16:45→19:46)
[2019-07-03] MEDS: REPAGLINIDE 1 MG TAB PO SCH (16:45)
[2019-07-03] MEDS ORDERED: CHOLECALCIFEROL 1,000 UNITS TAB PO SCH (21:00)
[2019-07-03] MEDS ORDERED: [UNRECOGNIZED DRUG - OTHER] PO SCH (21:00)
[2019-07-03] MEDS ORDERED: LISINOPRIL 2.5 MG TAB PO SCH (21:00)
[2019-07-03] MEDS ORDERED: ATORVASTATIN 40 MG TAB PO SCH (21:00)
[2019-07-03] MEDS ORDERED: TAMSULOSIN HCL 0.4 MG CAP PO SCH (21:00)
[2019-07-04 06:18] LABS: Basophils # (auto) 0.01 K/uL (0-0.2); Basophils % (auto) 0.1 %; Eosinophils # (auto) 0.21 K/uL (0-0.5); Eosinophils % (auto) 3.1 %; Hematocrit (blood only) 37.7 % (42-52); Immature Granulocytes # (auto) 0.01 K/uL (0.00-0.02); Immature Granulocytes % (auto) 0.1 %; Lymphocytes # (auto) 1.32 K/uL (1.2-3.4); Lymphocytes % (auto) 19.3 %; Mean Corpuscular Hemoglobin 29.7 pg (25-34); Mean Corpuscular Hgb Conc 34.5 g/dL (32-36); Mean Corpuscular Volume 86.1 fL (80-100); Mean Platelet Volume 10.1 fL (7.4-10.4); Monocytes # (auto) 0.87 K/uL (0.11-0.59); Monocytes % (auto) 12.7 %; Neutrophils # (auto) 4.41 K/uL (1.4-6.5); Neutrophils % (auto) 64.7 %; Platelet Count 100 K/uL (130-400); RDW Standard Deviation 41.3 fL (36.4-46.3); Red Blood Count 4.38 M/uL (4.7-6.1); White Blood Count 6.83 K/uL (4.8-10.8)
[2019-07-04] MEDS: REPAGLINIDE 1 MG TAB PO SCH (07:38)
[2019-07-04] MEDS: INSULIN ASPART 100 UNITS/ML 3 ML PEN SC SCH (07:40)
[2019-07-04] MEDS ORDERED: METOPROLOL SUCC 25MG EXT REL TAB PO SCH (09:00)
[2019-07-04] MEDS ORDERED: CLOPIDOGREL BISULFATE 75 MG TAB PO SCH (09:00)
[2019-07-04] MEDS ORDERED: NON-FORMULARY MEDICATION (Coenzyme Q10 200 MG) PO SCH (09:00)
[2019-07-04] MEDS ORDERED: ASPIRIN 81 MG ECTAB PO SCH (09:00)
--- NOTE | 2019-07-05 21:42 | Discharge Summary ---
Date of Service July 05, 2019 Admission HPI Per Admitting Provider Mr. 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 Patient with exertional chest symptoms primarily with exercising on stationary bike. Yesterday underwent stress test which was limited by chest pain and ST depressions. Specialty Data Cardiology Cardiac cath 07/03/2019: LM -20% distal disease at bifurcation LAD -moderate caliber vessel, calcified proximally with diffuse 60% disease, focal 90% in-stent restenosis in mid segment stent at takeoff of small second diagonal. 40% mid segment disease just after stent. 50% latemid stenosis just after the third diagonal. Distal luminal irregularities as wraps around apex. Moderate caliber first diagonal without significant disease. Circumflex -large caliber vessel, proximal to mid luminal irregularities. Large OM 2 without significant disease. RCA -dominant, moderate caliber vessel, 30% mid segment disease, distal luminal irregularities PCI: Successful PCI of proximal to mid LAD with single drug-eluting stent overlapping proximal aspect of prior stent (2.75 x 33 mm Xience Shanti; postdilated with 3.0 NC). Discharge Data Consultations 07/03/19 14:04 Consult Cardiac Rehabilitation Routine Procedures Performed Operation Date: 07/03/19 12:30 Actual Procedures p Drug Eluting Stent SGl Vessel - Lokesh Thakur MD s Cath, Left with Cors and Vent - Lokesh Thakur MD s Cineradiography w/Routine Exam - Lokesh Thakur MD Hospital Course (1) CAD (coronary artery disease): Patient presented for cardiac catheterization after high risk abnormal stress test. Catheterization via right radial artery revealed severe proximal to mid LAD disease with up to 90% mid LAD in-stent restenosis. He was treated with a single drug-eluting stent with good angiographic result. Post procedure was admitted to telemetry for observation. Post procedure course was unremarkable. No recurrent chest pain. No access site complications. Electrically and hemodynamically stable. Post procedure labs unchanged. He was discharged home on hospital day 2 on DAPT with aspirin, clopidogrel. He will follow-up with Dr. Snyder in 2 to 3 weeks. Discharge Instructions Home Medications metoprolol succinate 25 mg PO QAM #30 tab 07/26/14 [History Confirmed 07/02/19] nitroglycerin 400 mcg SUBLINGUAL DAILY PRN #0 03/10/15 [History Confirmed 07/02/19] tamsulosin [Flomax] 0.8 mg PO HS #0 cap 05/12/15 [History Confirmed 07/02/19] lisinopril 2.5 mg PO HS #0 tab 06/18/16 [History Confirmed 07/02/19] cholecalciferol (vitamin D3) 1,000 unit PO PM #0 11/12/16 [History Confirmed 07/02/19] dutasteride 0.5 mg PO HS #0 11/12/16 [History Confirmed 07/02/19] coenzyme Q10 200 mg PO QAM #0 01/14/18 [History Confirmed 07/02/19] omeprazole 20 mg PO QAM 90 Days #90 tab 01/14/18 [History Confirmed 07/02/19] repaglinide [Prandin] 1 mg PO TID #0 01/14/18 [History Confirmed 07/02/19] atorvastatin 80 mg tablet 80 mg PO PM #90 tab 05/07/19 [Rx Confirmed 07/02/19] uzjugsdw-nsow-ewyzk acid 200 mcg-lycopene 5 mg-boron 250 mcg tablet 1 tab PO BID #0 tab 05/27/19 [History Confirmed 07/02/19] aspirin [Ecotrin Low Strength] 81 mg PO QAM 30 Days #30 tab 07/04/19 [Rx] clopidogrel 75 mg PO QAM 30 Days #30 tab 07/04/19 [Rx]
== END 2019-07-04 10:47 | disposition home or self-care (01) ==
LOC: CC 11:52 → 2E 11:52

== ENCOUNTER 2021-12-03 20:15 | Observation (INO) ==
[2021-12-03] MEDS ORDERED: ONDANSETRON INJ 2 MG/ML 2 ML VIAL IV STA (20:40)
--- NOTE | 2021-12-03 20:47 | Emergency Department Note ---
Impression & Plan Acute left flank pain, Renal hematoma, SOB (shortness of breath), S/P ureteral stent placement ED Provider Note NAME: ROBERT MARTI AGE: 81 SEX: M : 1940 ARRIVES VIA: Walk-In INFORMANT: [Patient][family] ED PROVIDER(S): [Juan Diego Canada MD] CHIEF COMPLAINT: DrCarmen Martinez, flank pain HISTORY OF PRESENT ILLNESS: The patient is an 81-year-old male with bladder cancer. He has a history of 2 nephrostomy tubes on the left. They were placed originally 3 months ago. The patient just returned from [facility] where the nephrostomy tubes were removed. The patient now has a stent in his ureter is and he states that things have been internalized. The patient states that he has been having discomfort since returning from [place] however, about an hour ago, he began having severe left flank pain with certain movements and coughing. The pain is sharp and comes on suddenly lasting seconds at a time. The patient did try some Tylenol before arrival with no relief. He is urinating without difficulty, no fever, no chills, no nausea or vomiting. He is a bit short of breath but he thinks that is from the pain. There has been no cough. He was referred by his doctors for evaluation. REVIEW OF SYSTEMS: See HPI for pertinent positives and negatives. A total of ten systems were reviewed and were otherwise negative. PMHx/PSHx: See Below SOCIAL HISTORY: See Below. PHYSICAL EXAM: GENERAL: Patient is in mild distress from pain. HEENT: No acute trauma, normocephalic atraumatic, mucous membranes moist, no nasal congestion, no scleral icterus. NECK: No stridor, no adenopathy, no meningismus, trachea is midline. LUNGS: Clear to auscultation bilaterally, no wheeze, no rhonchi, breath sounds equal. HEART: Without murmurs gallops or rubs, regular rate and rhythm. ABDOMEN: Soft, nontender, bowel sounds positive, no hernias, no peritonitis. EXTREMITIES: No cyanosis or edema, full range of motion of all the joints without pain or difficulty, no signs for acute trauma. NEUROLOGIC: Oriented x 3, no acute motor or sensory deficits, no focal weakness. SKIN: No rash, no jaundice, no diaphoresis. Back: The patient does have pain in the left flank with certain movements. His nephrostomy sites are healing and there is no erythema or drainage. DIFFERENTIAL DIAGNOSIS: Hematoma, retroperitoneal hematoma, musculoskeletal pain, hydronephrosis, renal hematoma, renal failure, UTI, pyelonephritis, pneumonia, pneumothorax, free air, pleural effusion, among others. EMERGENCY DEPARTMENT COURSE/PROCEDURES: Critical Care Note: I have personally spent 51 minutes of critical care time in the direct management of this patient. This includes bedside care, in terpretation of diagnostic studies, and testing, discussion with consultants, patient, and family members, and other required patient management activities. This 51 minutes is in excess of all separately billable procedures. MEDICAL DECISION MAKING: There is no leukocytosis. A mild anemia was noted, likely from his recent procedure. There was a normal platelet count. Creatinine was a bit elevated however, the patient has had a higher creatinine looking back at previous testing. No significant electrolyte abnormality in need of emergent correction. No concerning liver enzyme elevation. No evidence for pancreatitis. Urinalysis shows white cells and red cells, consistent with possible infection versus just irritation from his stent placement and recent procedures. Urine culture is pending. Covid testing returned negative. Chest film shows some atelectasis/infiltrate and a small effusion at the left base. No pneumothorax or free air. Chest CT does not show PE, the atelectasis and effusion was again seen. Abdominal and pelvis CT shows some inflammation around the left kidney, no hydronephrosis. The stents are in position. A subcapsular hematoma was seen. On exam, the patient was quite uncomfortable. The patient was aggressively managed given his pain. He received IV saline for hydration. He was given IV Zofran, IV morphine--a few doses of morphine were given with minimal relief. The patient was eventually given IV Dilaudid. He received IV Tylenol and IV ceftriaxone. I discussed the case with [facility], urology on-zayda--Dr. Krueger. The patient does not need emergent transfer. A hospital stay here with observation, IV antibiotics, IV hydration and close watch on the hematoma was suggested. If things were to worsen, he can be sent there for further care. I spoke with the patient and case management. The on-call hospitalist was consulted. I suspect the patient's pain is from his atelectasis, his recent procedure and the subcapsular hematoma. There are multiple reasons why he has discomfort. Past Med/Surg History Medical History Back pain with radiation Damon's esophagus Bifascicular block dating back to at least 2013 stress test (RBBB/LAFB)* Bladder cancer S/P surgery, BCG treatment (stopped 05/2017), chemo (completed 08/2018) BPH (benign prostatic hyperplasia) Coronary artery disease 06/2019 - [facility] x 1, 1997- stent x 1 Diabetes mellitus, type 2 NIDDM GERD (gastroesophageal reflux disease) controlled, stable, denies issues laying flat Hearing deficit BL BARAJAS History of dysplastic nevus History of inguinal hernia B/L Surgical History History of back surgery 04/2015. History of cardiac cath 06/2019 - [facility] - + stress test - [facility] x 1 2010- no stents 1997- stent x 1 AT [facility] History of colonoscopy History of cystoscopy History of esophagogastroduodenoscopy (EGD) History of hernia repair History of inguinal hernia repair BL History of surgery TURBT 04/02/2019: LMA #5, no issues reported on anesthesia progress note. History of surgery UMBILICAL FISTULA Previous back surgery Family History Brother History of anesthesia reaction HICCUPS Hearing loss Hypertension Heart disease Testicular cancer Allergies Coronary heart disease Father Heart disease Hypertension Mother Heart disease Uncle Heart disease Cancer Hypertension Nephrolithiasis Denies family history of Clotting disorder Social History Smoking Status: Never smoker Second Hand Exposure: Yes; Hx Alcohol Use: No Hx Substance Use: No Preferred Language: Italian Communication Ability: Effective Literacy Tutor Required: No Beliefs That Will Affect Care: None marital status: / Current Living Situation: Alone current occupational status: retired Feels Safe at Home: Yes Assistive Devices: Glasses Allergies Allergies Allergy/AdvReac Type Severity Reaction Status Date / Time ciprofloxacin [From Cipro] Allergy Intermediate Blister Verified 12/03/21 21:49 olmesartan Allergy Intermediate hypotension Verified 12/03/21 21:49 /dizziness peach Allergy Intermediate HIVES Verified 12/03/21 21:49 amoxicillin AdvReac Severe DIARRHEA Verified 12/03/21 21:49 erythromycin base AdvReac Severe DIARRHEA Verified 12/03/21 21:49 Sulfa (Sulfonamide AdvReac Severe DIARRHEA Verified 12/03/21 21:49 Antibiotics) Eggplant Allergy Intermediate HIVES Uncoded 12/03/21 21:49 Home Meds Home Medications Medication Instructions Recorded Confirmed tamsulosin 0.4 mg capsule (Flomax) 0.8 mg PO HS #0 cap 05/12/15 12/03/21 lisinopril 2.5 mg tablet 2.5 mg PO HS #0 tab 06/18/16 12/03/21 cholecalciferol (vitamin D3) 25 2,000 unit PO PM #0 11/12/16 12/03/21 mcg (1,000 unit) capsule coenzyme Q10 200 mg capsule 200 mg PO QAM #0 01/14/18 12/03/21 aspirin 81 mg tablet,delayed 81 mg PO QAM 02/05/20 12/03/21 release (Aspirin Low Dose) [id number]-bbia-vcbxt acid 200 1 tab PO BID 06/30/20 12/03/21 mcg-lycopene 5 mg-boron 250 mcg tablet (Bladder 2.2) econazole 1 % topical cream 1 appln TOP BID PRN 06/23/21 12/03/21 lansoprazole 30 mg capsule,delayed 30 mg PO QAM 06/23/21 12/03/21 release metoprolol succinate 25 mg 12.5 mg PO QAM 06/23/21 12/03/21 tablet,extended release 24 hr clopidogrel 75 mg tablet (Plavix) 75 mg PO DAILY 07/20/21 12/03/21 acetaminophen 500 mg tablet 1,000 mg PO Q6H PRN 12/03/21 12/03/21 (Tylenol Extra Strength) repaglinide 1 mg tablet 1 mg PO TID 12/03/21 12/03/21 Previous Rx's Medication Instructions Recorded nitroglycerin 400 mcg/spray 400 mcg SUBLINGUAL DAILY PRN #4.1 g 12/22/20 translingual aerosol dutasteride 0.5 mg capsule 0.5 mg PO DAILY #90 cap 06/29/21 atorvastatin 80 mg tablet (Lipitor) 80 mg PO PM #90 tab 07/24/21 Results & Data (ED) Vital Signs Vital Signs - 24 hr 12/03/21 20:22 12/03/21 21:00 12/03/21 22:24 Temperature 36.6 C Temperature Source Temporal Artery Scan Pulse Rate 80 77 Pulse Rate [Right Finger] 73 91 H Respiratory Rate 18 18 20 Respiratory Effort / Characteristics Non-Labored Spontaneous Respiratory Depth Normal Respiratory Pattern Regular Blood Pressure 155/81 H Blood Pressure [Right Arm] 160/81 H 150/80 H Blood Pressure Mean 105 Blood Pressure Mean [Right Arm] 107 103 Blood Pressure Position [Right Arm] Lying Pulse Oximetry 96 94 91 Oxygen Delivery Method Room Air Room Air Room Air Oxygen Flow Rate 3 Sepsis Recent Fever Within 48 Hours No Sepsis New/Unexplained Change in Mental Status No Sepsis Action Taken by Nursing No Action Required Home Medications Current Medication List: was personally reviewed by me Laboratory Data Attestation: I reviewed the patient's lab results. Result diagrams: 12/03/21 20:55 12/03/21 20:55 Lab Results 12/03/21 12/03/21 12/03/21 Range/Units 20:55 20:55 22:48 WBC 7.33 (4.8-10.8) K/uL RBC 3.89 L (4.7-6.1) M/uL Hgb 10.9 L (14.0-18.0) g/dL Hct 33.4 L (42-52) % MCV 85.9 (80-100) fL MCH 28.0 (25-34) pg MCHC 32.6 (32-36) g/dL RDW Std Deviation 45.2 (36.4-46.3) fL RDW Coeff of Lissette 14.4 (11.5-14.5) % Plt Count 168 (130-400) K/uL MPV 9.8 (7.4-10.4) fL Immature Gran % (Auto) 0.1 % Neut % (Auto) 67.2 % Lymph % (Auto) 16.2 % [place] % (Auto) 11.7 % Eos % (Auto) 4.5 % Baso % (Auto) 0.3 % Neut # (Auto) 4.92 (1.4-6.5) K/uL Lymph # (Auto) 1.19 L (1.2-3.4) K/uL [place] # (Auto) 0.86 H (0.11-0.59) K/uL Eos # (Auto) 0.33 (0-0.5) K/uL Baso # (Auto) 0.02 (0-0.2) K/uL Immature Gran # (Auto) 0.01 (0.00-0.02) K/uL Sodium 140 (136-145) mmol/L Potassium 3.8 (3.5-5.1) mmol/L Chloride 105 (98-107) mmol/L Carbon Dioxide 26 (21-32) mmol/L Anion Gap 9 (3-11) BUN 25 H (6-23) mg/dl Creatinine 1.57 H (0.6-1.4) mg/dl Est Cr Clr Drug Dosing 35.1 ml/min Est GFR ( Amer) 46.9 ml/min Est GFR (Non-Af Amer) 40.4 ml/min BUN/Creatinine Ratio 15.9 (10-20) Glucose 142 H (70-99(Fasting)) mg/dl Calcium 9.3 (8.5-10.1) mg/dl Total Bilirubin 0.5 (0.2-1.0) mg/dl AST 14 (13-39) U/L ALT 17 (7-52) U/L Alkaline Phosphatase 108 H (34-104) U/L Total Protein 6.7 (6.0-8.3) gm/dl Albumin 3.9 (3.4-5.0) gm/dl Globulin 2.8 (2.5-4.0) gm/dl Albumin/Globulin Ratio 1.4 (0.9-2) Lipase 35 (11-82) U/L Urine Color Yellow Urine Appearance Clear (Clear) Urine pH 5.5 (4.5-7.5) Ur Specific [place] > 1.045 H (1.000-1.030) Urine Protein Trace H (Negative) Urine Glucose (UA) Negative (Negative) Urine Ketones Negative (Negative) Urine Blood 3+ H (Negative) Urine Nitrite Negative (Negative) Urine Bilirubin Negative (Negative) Urine Urobilinogen Negative (Negative) Ur Leukocyte Esterase 1+ H (Negative) Urine WBC (Auto) >30 H (0-5) /hpf Urine RBC (Auto) >30 H (0-4) /hpf U Hyaline Cast (Auto) 1-5 (0-5) /lpf U Epithel Cells (Auto) 20-30 H (0-5) /lpf Urine Bacteria (Auto) Negative (Negative) SARS-CoV-2, RNA, NAAT (NEGATIVE) 12/03/21 Range/Units 23:55 WBC (4.8-10.8) K/uL RBC (4.7-6.1) M/uL Hgb (14.0-18.0) g/dL Hct (42-52) % MCV (80-100) fL MCH (25-34) pg MCHC (32-36) g/dL RDW Std Deviation (36.4-46.3) fL RDW Coeff of Lissette (11.5-14.5) % Plt Count (130-400) K/uL MPV (7.4-10.4) fL Immature Gran % (Auto) % Neut % (Auto) % Lymph % (Auto) % [place] % (Auto) % Eos % (Auto) % Baso % (Auto) % Neut # (Auto) (1.4-6.5) K/uL Lymph # (Auto) (1.2-3.4) K/uL [place] # (Auto) (0.11-0.59) K/uL Eos # (Auto) (0-0.5) K/uL Baso # (Auto) (0-0.2) K/uL Immature Gran # (Auto) (0.00-0.02) K/uL Sodium (136-145) mmol/L Potassium (3.5-5.1) mmol/L Chloride (98-107) mmol/L Carbon Dioxide (21-32) mmol/L Anion Gap (3-11) BUN (6-23) mg/dl Creatinine (0.6-1.4) mg/dl Est Cr Clr Drug Dosing ml/min Est GFR ( Amer) ml/min Est GFR (Non-Af Amer) ml/min BUN/Creatinine Ratio (10-20) Glucose (70-99(Fasting)) mg/dl Calcium (8.5-10.1) mg/dl Total Bilirubin (0.2-1.0) mg/dl AST (13-39) U/L ALT (7-52) U/L Alkaline Phosphatase (34-104) U/L Total Protein (6.0-8.3) gm/dl Albumin (3.4-5.0) gm/dl Globulin (2.5-4.0) gm/dl Albumin/Globulin Ratio (0.9-2) Lipase (11-82) U/L Urine Color Urine Appearance (Clear) Urine pH (4.5-7.5) Ur Specific [place] (1.000-1.030) Urine Protein (Negative) Urine Glucose (UA) (Negative) Urine Ketones (Negative) Urine Blood (Negative) Urine Nitrite (Negative) Urine Bilirubin (Negative) Urine Urobilinogen (Negative) Ur Leukocyte Esterase (Negative) Urine WBC (Auto) (0-5) /hpf Urine RBC (Auto) (0-4) /hpf U Hyaline Cast (Auto) (0-5) /lpf U Epithel Cells (Auto) (0-5) /lpf Urine Bacteria (Auto) (Negative) SARS-CoV-2, RNA, NAAT NEGATIVE (NEGATIVE) Administered Medications Morphine Sulfate (Morphine Sulfate 4 Mg/Ml 1 Ml Carp\Vial) 4 mg IV Q15M PRN PRN Reason: Pain Stop: 12/17/21 20:39 Last Admin: 12/03/21 22:19 Dose: 4 mg Documented by: [id number] Admin: 12/03/21 20:55 Dose: 4 mg Documented by: [id number] Discontinued Medications Acetaminophen (Acetaminophen 1000 Mg/100 Ml Iv) 1,000 mg IV NOW STA Stop: 12/03/21 22:35 Last Admin: 12/03/21 22:38 Dose: 1,000 mg Documented by: [id number] Hydromorphone HCl (Hydromorphone Inj 0.5 Mg/0.5 Ml Syr) 0.5 mg IV NOW STA Stop: 12/03/21 22:35 Last Admin: 12/03/21 22:38 Dose: 0.5 mg Documented by: [id number] Sodium Chloride (Nss 1000ml) 500 mls @ 999 mls/hr IV .Q31M ONE Stop: 12/03/21 22:03 Last Infusion: 12/03/21 22:15 Dose: 0 mls/hr Documented by: [id number] Admin: 12/03/21 21:37 Dose: 999 mls/hr Documented by: [id number] Ceftriaxone Sodium (Rocephin) 1,000 mg in 50 mls @ 100 mls/hr IV NOW STA Stop: 12/03/21 23:42 Last Admin: 12/03/21 23:52 Dose: 100 mls/hr Documented by: [id number] Ioversol (Optiray 320 125ml) 120 ml IV ONCE ONE Stop: 12/03/21 21:46 Last Admin: 12/03/21 21:45 Dose: 120 ml Documented by: [id number] Ondansetron HCl (Ondansetron Inj 2 Mg/Ml 2 Ml Vial) 4 mg IV NOW STA Stop: 12/03/21 20:41 Last Admin: 12/03/21 20:55 Dose: 4 mg Documented by: [id number] Imaging Data Attestation: I personally reviewed and interpreted this imaging study as follows: My Impression: Chest x-ray: The patient does have some atelectasis at the left base with a small pleural effusion. I see no pneumothorax, no CHF. Radiologist's Impression: CT of the chest: There is no evidence for PE. No evidence for thoracic dissection. No pericardial effusion. There are some lower lobe opacities likely atelectatic although pneumonia cannot be excluded. There are some pu lmonary nodules. There is a trace left pleural effusion. There is some thickening of the distal esophagus with some incomplete distention, esophagitis was thought possible. No osseous abnormality. 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 No hydronephrosis. There is mild stranding around the left renal pelvis. There is evidence for left nephrostomy tube tract. There is a 2.8 x 1.2 x 3.7 cm posterior left perinephric hyperdense collection which may be a small perinephric or subcapsu lar hematoma. Perinephric abscess cannot be excluded. No bowel obstruction. No diverticulitis. No abscess or free air. Discharge Plan Visit Data Chief Complaint: Referred by Doctor Stated Complaint: NEPH TUB[place] [facility] [place] Provider: Juan Diego Canada Discharge Problem: Acute left flank pain, Renal hematoma, SOB (shortness of breath), S/P ureteral stent placement Patient Disposition: Admitted As Inpatient Condition: Fair Forms Stand Alone Forms: My [facility] First Aid Shot Therapy Prescriptions Prescriptions: No Action tamsulosin [Flomax] 0.4 mg Capsule 0.8 mg PO HS Qty: 0 RF: 0 lisinopril 2.5 mg Tablet 2.5 mg PO HS Qty: 0 RF: 0 cholecalciferol (vitamin D3) 1,000 unit Capsule 2,000 unit PO PM Qty: 0 RF: 0 coenzyme Q10 200 mg Capsule 200 mg PO QAM Qty: 0 RF: 0 dutasteride 0.5 mg capsule 0.5 mg PO DAILY Qty: 90 RF: 3 atorvastatin [Lipitor] 80 mg tablet 80 mg PO PM Qty: 90 RF: 3 aspirin [Aspirin Low Dose] 81 mg tablet,delayed release (DR/EC) 81 mg PO QAM RF: 0 nitroglycerin 400 mcg/spray aerosol,spray 400 mcg Sublingual DAILY PRN (Reason: Angina) Qty: 4.1 RF: 2 Bladder 2.2 200-5-250 mcg-mg-mcg Tablet 1 tab PO BID RF: 0 clopidogrel [Plavix] 75 mg Tablet 75 mg PO DAILY RF: 0 acetaminophen [Tylenol Extra Strength] 500 mg Tablet 1,000 mg PO Q6H PRN (Reason: Pain) RF: 0 repaglinide 1 mg tablet 1 mg PO TID RF: 0 econazole 1 % cream 1 appln TOP BID PRN (Reason: Rash) RF: 0 lansoprazole 30 mg capsule,delayed release(DR/EC) 30 mg PO QAM RF: 0 metoprolol succinate 25 mg tablet extended release 24 hr 12.5 mg PO QAM RF: 0 Referrals Referrals: Pb Han DO [Primary Care Provider] -
[2021-12-03] MEDS: MoRPHine SULFATE 4 MG/ML 1 ML CARP\\VIAL IV PRN ×2 (20:55→22:19)
[2021-12-03 21:05] LABS: Basophils # (auto) 0.02 K/uL (0-0.2); Basophils % (auto) 0.3 %; Eosinophils # (auto) 0.33 K/uL (0-0.5); Eosinophils % (auto) 4.5 %; Hematocrit (blood only) 33.4 % (42-52); Hemoglobin 10.9 g/dL (14.0-18.0); Immature Granulocytes # (auto) 0.01 K/uL (0.00-0.02); Immature Granulocytes % (auto) 0.1 %; Lymphocytes # (auto) 1.19 K/uL (1.2-3.4); Lymphocytes % (auto) 16.2 %; Mean Corpuscular Hgb Conc 32.6 g/dL (32-36); Mean Corpuscular Volume 85.9 fL (80-100); Mean Platelet Volume 9.8 fL (7.4-10.4); Monocytes # (auto) 0.86 K/uL (0.11-0.59); Monocytes % (auto) 11.7 %; Neutrophils # (auto) 4.92 K/uL (1.4-6.5); Neutrophils % (auto) 67.2 %; Platelet Count 168 K/uL (130-400); RDW Coefficient of Variation 14.4 % (11.5-14.5); RDW Standard Deviation 45.2 fL (36.4-46.3); Red Blood Count 3.89 M/uL (4.7-6.1); White Blood Count 7.33 K/uL (4.8-10.8)
[2021-12-03 21:28] LABS: Albumin Globulin Ratio 1.4 (0.9-2); Albumin Level 3.9 gm/dl (3.4-5.0); BUN Creatinine Ratio 15.9 (10-20); Bilirubin,Total 0.5 mg/dl (0.2-1.0); Calcium 9.3 mg/dl (8.5-10.1); Creatinine Clr Calc Pharmacy 35.1 ml/min; Est GFR (African American) 46.9 ml/min; Est GFR (Non-African American) 40.4 ml/min; Globulin 2.8 gm/dl (2.5-4.0); Potassium 3.8 mmol/L (3.5-5.1); Total Protein 6.7 gm/dl (6.0-8.3)
[2021-12-03] MEDS ORDERED: SODIUM CHLORIDE 0.9% 1000ML 500 ML IV ONE (21:33)
[2021-12-03] MEDS ORDERED: OPTIRAY 320 125ml IV ONE (21:45)
[2021-12-03] MEDS ORDERED: HYDROmorphone INJ 0.5 MG/0.5 ML SYR IV STA (22:34)
[2021-12-03] MEDS ORDERED: ACETAMINOPHEN 1000 MG/100 ML IV IV STA (22:34)
[2021-12-03 23:08] LABS: Appearance Urine Clear (Clear); Bacteria Urine Automated Negative (Negative); Bilirubin Urine Negative (Negative); Blood Urine 3+ (Negative); Color Urine Yellow; Epithelial Cell Urine Auto 20-30 /lpf (0-5); Glucose Urine UA Negative (Negative); Ketones Urine Negative (Negative); Leukocyte Esterase Urine 1+ (Negative); Nitrite Urine Negative (Negative); Protein Urine Trace (Negative); RBC Urine Automated >30 /hpf (0-4); Specific Gravity Urine > 1.045 (1.000-1.030); Urobilinogen Urine Negative (Negative); WBC Urine Automated >30 /hpf (0-5); pH Urine 5.5 (4.5-7.5)
[2021-12-03] MEDS ORDERED: cefTRIAXone SODIUM 1,000 MG/50 ML BAG IV STA (23:13)
--- NOTE | 2021-12-04 00:52 | History & Physical Report ---
Date of Service December 04, 2021 Assessment & Plan (1) Acute left flank pain: Plan: 81-year-old male with a past medical history of bladder cancer with recurrence status post recent nephrostomy with stent placement at [facility], Damon's esophagus, diabetes, hypertension, BPH, coronary artery disease status post stent placement presented to the emergency department for evaluation of severe left flank pain diagnosed with left subcapsular renal hematoma. #Subcapsular hematoma complicated by bladder cancer and recent nephrostomy removal with stent placement Diagnosed by CT scan. ED physician spoke with on-call urologist at [facility] who explained the patient did not warrant urgent transfer. He should be admitted to the hospital for careful monitoring, IV antibiotics, pain control, and reimaging. -Pain control IV Dilaudid 0.5 mg every 3 hours, scheduled IV Tylenol 1 g every 8 hours -When able de-escalate to p.o. -Ceftriaxone -Primary team to decide when to reimage consider consultation with [facility] -Consult urology -We will keep n.p.o. pending urology consultation in the event they want to pursue surgical intervention -We will hold Plavix - please resume when able - Continue Aspirin 81mg daily - patient with history of CAD with STEFANIE placed t o LAD, subsequent restenosis. He follows with Cardiology. ASA therapy should remain uninterupted #Bladder cancer Managed by oncology/urology -Consult urology -Continued dutasteride #Anemia Likely secondary to the above, no indication for transfusion at present. -Trend hemoglobin with daily CBCs #Electrolyte derangement -Daily BMP, replete as indicated #BPH -Continue tamsulosin #Coronary artery disease status post stent placement History of STEFANIE placement in the late with in-stent restenosis and subsequent stent placement in 2019. On dual antiplatelet therapy -Hold Plavix -Continue ASA -Continue atorvastatin 80 mg daily #GERD -Continue lansoprazole #Hypertension -Continue metoprolol -Holding lisinopril #Type 2 diabetes Hold home meds, start SSI while in hospital -Lantus 5u BID and ISS FENa: N.p.o. Code Status:full DVT PPX: SCDs PT/OT: Ordered Case Management: Consulted Dispo:med surg/ tele Abran Olivas MD PGY 3, FCM This chart was completed utilizing [employer] voice recognition software. Grammatical errors, random word insertions, pronoun errors, and in complete sentences are an occasional consequence of the system. Any questions or concerns about the content, text, or information contained within the body of this dictation should be addressed directly to the physician for clarification. (2) Renal hematoma: (3) Urinary retention: (4) Atherosclerosis of coronary artery: (5) Bladder carcinoma: (6) CAD (coronary artery disease): History of Present Illness Primary Care Provider: Pb Han DO 81-year-old male with a past medical history of bladder cancer with recurrence status post recent nephrostomy with stent placement at [facility], Damon's esophagus, diabetes, hypertension, BPH, coronary artery disease status post stent placement presented to the emergency department for evaluation of severe left flank pain diagnosed with left subcapsular renal hematoma. Patient states that he has a recent history of 2 nephrostomy tubes on the left they replaced 3 months ago he recently returned from [facility] where the tubes were removed and stents were placed. Patient states been having discomfort since that time however earlier today he began to have acute severe left flank pain which was worsened with coughing and certain movements. He described the pain as sharp and coming on suddenly lasting for 30 seconds or so. Patient will tried Tylenol without significant relief. He notes that he is voiding on his own without difficulty denying any fevers or chills, nausea or vomiting, chest pressure or chest pain, no cough. In the emergency department routine labs were obtained CBC was notable for trace anemia, chemistries demonstrated an elevated creatinine to 1.57 however when compared to prior chemistries it appears his baseline is 1.5-1.3, glucose 142 CMP demonstrated an AP of 108 UA demonstrated elevated specific gravity, trace urine protein, 3+ blood, 1+ leuks, greater than [address] abdomen pelvis demonstrating new 2.8 x 1.2 x 3.7 cm crescentic posterior left perinephric hypodense collection representing a perinephric or subcapsular hematoma. Chest CT demonstrating moderate coronary artery atherosclerosis, bilateral lower lobe opacities atelectasis versus pneumonia, no pathological adenopathy bilateral thyroid nodules and masses left greater than right measuring 3.5 cm.The emergency department physician spoke with Dr. Scott on-call urologist at [facility] who stated the patient does not need emergent transfer recommending a hospital stay with observation, IV antibiotics, IV hydration, pain control and close watch on the hematoma with reimaging in 24 hours. While in the emergency department the patient was given IV Zofran, IV morphine, IV Dilaudid, IV Tylenol and IV ceftriaxone. The hospital service was consulted for admission. On arrival to the room patient was lying comfortably in bed. He recalled in HPI similar to that as described above. He notes that he currently has active cancer, the plan was to keep his ureters open with stents while he underwent radiation scheduled for December 13 at [facility]. That was the purpose of this most recent procedure. He notes overall he is doing well and pain is well controlled at present. Acute concerns relate to pain control all questions answered Allergies Allergy/AdvReac Type Severity Reaction Status Date / Time ciprofloxacin [From Cipro] Allergy Intermediate Blister Verified 12/03/21 21:49 olmesartan Allergy Intermediate hypotension Verified 12/03/21 21:49 /dizziness peach Allergy Intermediate HIVES Verified 12/03/21 21:49 amoxicillin AdvReac Severe DIARRHEA Verified 12/03/21 21:49 erythromycin base AdvReac Severe DIARRHEA Verified 12/03/21 21:49 Sulfa (Sulfonamide AdvReac Severe DIARRHEA Verified 12/03/21 21:49 Antibiotics) Eggplant Allergy Intermediate HIVES Uncoded 12/03/21 21:49 Home Medications Medication Instructions Recorded Confirmed Type tamsulosin 0.4 mg capsule (Flomax) 0.8 mg PO HS #0 cap 05/12/15 12/03/21 History lisinopril 2.5 mg tablet 2.5 mg PO HS #0 tab 06/18/16 12/03/21 History cholecalciferol (vitamin D3) 25 2,000 unit PO PM #0 11/12/16 12/03/21 History mcg (1,000 unit) capsule coenzyme Q10 200 mg capsule 200 mg PO QAM #0 01/14/18 12/03/21 History aspirin 81 mg tablet,delayed 81 mg PO QAM 02/05/20 12/03/21 History release (Aspirin Low Dose) vejlypjf-vfps-pfhdy acid 200 1 tab PO BID 06/30/20 12/03/21 History mcg-lycopene 5 mg-boron 250 mcg tablet (Bladder 2.2) nitroglycerin 400 mcg/spray 400 mcg SUBLINGUAL DAILY PRN #4.1 g 12/22/20 12/03/21 Rx translingual aerosol econazole 1 % topical cream 1 appln TOP BID PRN 06/23/21 12/03/21 History lansoprazole 30 mg capsule,delayed 30 mg PO QAM 06/23/21 12/03/21 History release metoprolol succinate 25 mg 12.5 mg PO QAM 06/23/21 12/03/21 History tablet,extended release 24 hr dutasteride 0.5 mg capsule 0.5 mg PO DAILY #90 cap 06/29/21 12/03/21 Rx clopidogrel 75 mg tablet (Plavix) 75 mg PO DAILY 07/20/21 12/03/21 History atorvastatin 80 mg tablet (Lipitor) 80 mg PO PM #90 tab 07/24/21 12/03/21 Rx acetaminophen 500 mg tablet 1,000 mg PO Q6H PRN 12/03/21 12/03/21 History (Tylenol Extra Strength) repaglinide 1 mg tablet 1 mg PO TID 12/03/21 12/03/21 History Past Med/Surg History Medical History Back pain with radiation Damon's esophagus Bifascicular block dating back to at least 2013 stress test (RBBB/LAFB)* Bladder cancer S/P surgery, BCG treatment (stopped 05/2017), chemo (completed 08/2018) BPH (benign prostatic hyperplasia) Coronary artery disease 06/2019 - STEFANIE x 1, 1997- stent x 1 Diabetes mellitus, type 2 NIDDM GERD (gastroesophageal reflux disease) controlled, stable, denies issues laying flat Hearing deficit BL BARAJAS History of dysplastic nevus History of inguinal hernia B/L Surgical History History of back surgery 04/2015. History of cardiac cath 06/2019 - [facility] - + stress test - STEFANIE x 1 2010- no stents 1997- stent x 1 AT [place] History of colonoscopy History of cystoscopy History of esophagogastroduodenoscopy (EGD) History of hernia repair History of inguinal hernia repair BL History of surgery TURBT 04/02/2019: LMA #5, no issues reported on anesthesia progress note. History of surgery UMBILICAL FISTULA Previous back surgery Family History Brother History of anesthesia reaction HICCUPS Hearing loss Hypertension Heart disease Testicular cancer Allergies Coronary heart disease Father Heart disease Hypertension Mother Heart disease Uncle Heart disease Cancer Hypertension Nephrolithiasis Denies family history of Clotting disorder Social History Smoking Status: Never smoker Second Hand Exposure: Yes; Hx Alcohol Use: No Hx Substance Use: No Preferred Language: Urdu Communication Ability: Effective Adult School Teacher Required: No Beliefs That Will Affect Care: None marital status: / Current Living Situation: Alone current occupational status: retired Feels Safe at Home: Yes Assistive Devices: Glasses Review of Systems Review of Systems: as above Physical Exam Physical Exam: General: No acute distress HEENT: Normocephalic atraumatic Neck: No significant lymphadenopathy, trachea midline, normal to visual inspection Cardiac: Regular rate and rhythm, normal S1, normal S2, I did not appreciated any significant murmurs rubs or gallops, I did not appreciate any significant pedal edema, No calf tenderness, capillary refill is less than 3 seconds Respiratory: Clear to auscultation bilaterally with symmetrical chest rise, I did not appreciate any significant wheezes, rales, rhonchi, no increased work of breathing GI: Normal bowel sounds, soft, nontender in all 4 quadrants, nondistended, left cva tenderness. surgical sites clean dry and intact MSK: No sensory or motor changes, moves all extremities without issue, extremities are warm and well-perfused Skin: [place], clean, dry, intact. Neuro: Alert and oriented x3 Psych: Calm, cooperative, logical thought process Results & Data Results & Data ([facility]) Vital Signs (Past 12 Hours) Vital Signs Temp Pulse Pulse Resp BP BP Pulse Ox 12/03/21 22:24 91 H 20 150/80 H 91 12/03/21 21:00 77 73 18 160/81 H 94 12/03/21 20:22 36.6 C 80 18 155/81 H 96 Laboratory Results 12/03/21 12/03/21 12/03/21 Range/Units 23:55 22:48 20:55 WBC (4.8-10.8) K/uL RBC (4.7-6.1) M/uL Hgb (14.0-18.0) g/dL Hct (42-52) % MCV (80-100) fL MCH (25-34) pg MCHC (32-36) g/dL RDW Std Deviation (36.4-46.3) fL RDW Coeff of Lissette (11.5-14.5) % Plt Count (130-400) K/uL MPV (7.4-10.4) fL Immature Gran % (Auto) % Neut % (Auto) % Lymph % (Auto) % [place] % (Auto) % Eos % (Auto) % Baso % (Auto) % Neut # (Auto) (1.4-6.5) K/uL Lymph # (Auto) (1.2-3.4) K/uL [place] # (Auto) (0.11-0.59) K/uL Eos # (Auto) (0-0.5) K/uL Baso # (Auto) (0-0.2) K/uL Immature Gran # (Auto) (0.00-0.02) K/uL Sodium 140 (136-145) mmol/L Potassium 3.8 (3.5-5.1) mmol/L Chloride 105 (98-107) mmol/L Carbon Dioxide 26 (21-32) mmol/L Anion Gap 9 (3-11) BUN 25 H (6-23) mg/dl Creatinine 1.57 H (0.6-1.4) mg/dl Est Cr Clr Drug Dosing 35.1 ml/min Est GFR ( Amer) 46.9 ml/min Est GFR (Non-Af Amer) 40.4 ml/min BUN/Creatinine Ratio 15.9 (10-20) Glucose 142 H (70-99(Fasting)) mg/dl Calcium 9.3 (8.5-10.1) mg/dl Total Bilirubin 0.5 (0.2-1.0) mg/dl AST 14 (13-39) U/L ALT 17 (7-52) U/L Alkaline Phosphatase 108 H (34-104) U/L Total Protein 6.7 (6.0-8.3) gm/dl Albumin 3.9 (3.4-5.0) gm/dl Globulin 2.8 (2.5-4.0) gm/dl Albumin/Globulin Ratio 1.4 (0.9-2) Lipase 35 (11-82) U/L Urine Color Yellow Urine Appearance Clear (Clear) Urine pH 5.5 (4.5-7.5) Ur Specific [place] > 1.045 H (1.000-1.030) Urine Protein Trace H (Negative) Urine Glucose (UA) Negative (Negative) Urine Ketones Negative (Negative) Urine Blood 3+ H (Negative) Urine Nitrite Negative (Negative) Urine Bilirubin Negative (Negative) Urine Urobilinogen Negative (Negative) Ur Leukocyte Esterase 1+ H (Negative) Urine WBC (Auto) >30 H (0-5) /hpf Urine RBC (Auto) >30 H (0-4) /hpf U Hyaline Cast (Auto) 1-5 (0-5) /lpf U Epithel Cells (Auto) 20-30 H (0-5) /lpf Urine Bacteria (Auto) Negative (Negative) SARS-CoV-2, RNA, NAAT NEGATIVE (NEGATIVE) 12/03/21 Range/Units 20:55 WBC 7.33 (4.8-10.8) K/uL RBC 3.89 L (4.7-6.1) M/uL Hgb 10.9 L (14.0-18.0) g/dL Hct 33.4 L (42-52) % MCV 85.9 (80-100) fL MCH 28.0 (25-34) pg MCHC 32.6 (32-36) g/dL RDW Std Deviation 45.2 (36.4-46.3) fL RDW Coeff of Lissette 14.4 (11.5-14.5) % Plt Count 168 (130-400) K/uL MPV 9.8 (7.4-10.4) fL Immature Gran % (Auto) 0.1 % Neut % (Auto) 67.2 % Lymph % (Auto) 16.2 % [place] % (Auto) 11.7 % Eos % (Auto) 4.5 % Baso % (Auto) 0.3 % Neut # (Auto) 4.92 (1.4-6.5) K/uL Lymph # (Auto) 1.19 L (1.2-3.4) K/uL [place] # (Auto) 0.86 H (0.11-0.59) K/uL Eos # (Auto) 0.33 (0-0.5) K/uL Baso # (Auto) 0.02 (0-0.2) K/uL Immature Gran # (Auto) 0.01 (0.00-0.02) K/uL Sodium (136-145) mmol/L Potassium (3.5-5.1) mmol/L Chloride (98-107) mmol/L Carbon Dioxide (21-32) mmol/L Anion Gap (3-11) BUN (6-23) mg/dl Creatinine (0.6-1.4) mg/dl Est Cr Clr Drug Dosing ml/min Est GFR ( Amer) ml/min Est GFR (Non-Af Amer) ml/min BUN/Creatinine Ratio (10-20) Glucose (70-99(Fasting)) mg/dl Calcium (8.5-10.1) mg/dl Total Bilirubin (0.2-1.0) mg/dl AST (13-39) U/L ALT (7-52) U/L Alkaline Phosphatase (34-104) U/L Total Protein (6.0-8.3) gm/dl Albumin (3.4-5.0) gm/dl Globulin (2.5-4.0) gm/dl Albumin/Globulin Ratio (0.9-2) Lipase (11-82) U/L Urine Color Urine Appearance (Clear) Urine pH (4.5-7.5) Ur Specific [place] (1.000-1.030) Urine Protein (Negative) Urine Glucose (UA) (Negative) Urine Ketones (Negative) Urine Blood (Negative) Urine Nitrite (Negative) Urine Bilirubin (Negative) Urine Urobilinogen (Negative) Ur Leukocyte Esterase (Negative) Urine WBC (Auto) (0-5) /hpf Urine RBC (Auto) (0-4) /hpf U Hyaline Cast (Auto) (0-5) /lpf U Epithel Cells (Auto) (0-5) /lpf Urine Bacteria (Auto) (Negative) SARS-CoV-2, RNA, NAAT (NEGATIVE) Code Status & VTE Plan Code Status full Supervising Physician Co-Signing Physician Notes Patient seen and examined, chart reviewed, case discussed with Dr. Olivas and agree with his assessment and plan as documented above. In brief, patient is an 81-year-old male with history of low-grade bladder cancer status post intravesicular chemotherapy with subsequent recurrence of invasive high-grade necrotic UCC and carcinoma in situ of the prostate He follows with urology both locally and at [facility]. 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 He presents today with severe left flank pain. Found to have a 2.8 x 1.2 x 3.7 cm posterior left perinephric hypodense collection thought to be secondary to small perinephric or subcapsular hematoma versus, less likely infection. Patient was given pain control in the form of morphine and Dilaudid in the ER and is now comfortable. On physical exam he is afebrile, hemodynamically stable, nontoxic in appearance. Resting comfortably in bed HEENTnormocephalic/atraumatic, moist mucous membranes Heart+ S1, S2, regular, no murmur/rub/gallops Lungsclear to auscultation Abdomennormoactive bowel sounds, soft, nontender nondistended Extremitiestrace pitting right lower extremity edema (patient broke this leg and states that he always has trace edema) Labs and images reviewed. Significant for normochromic/normocytic anemia with hemoglobin = 10.9, hematocrit = 33.1. BUN = 25 and creatinine = 1.57 Assessment/[id number] male with history of bladder cancer, recent nephrostomy tubes with subsequent removal and stent placement presenting with acute onset left flank pain found to have fluid collection thought to be secondary to subcapsular hematoma Observation to medical Pain control and antiemetics as needed Ceftriaxone for empiric coverage Continue aspirinpatient with drug-eluting stent to the LAD with subsequent in- stent restenosis. He should be continued on uninterrupted aspirin therapy. Will hold Plavix temporarily. -Lantus 5 units twice daily with insulin sliding scale Remainder of plan as above (1) Renal hematoma Encounter type: initial encounter Laterality: left Qualified Code(s): S37.012A - Minor contusion of left kidney, initial encounter
[2021-12-04] MEDS ORDERED: ECONAZOLE NITRATE 1% CRM 15 GM TUBE TOP PRN (02:41)
[2021-12-04] MEDS ORDERED: ACETAMINOPHEN 1000 MG/100 ML IV IV PRN (02:41)
[2021-12-04] MEDS ORDERED: CARBOHYDRATES FOR HYPOGLYCEMIA PO PRN (02:41)
[2021-12-04] MEDS ORDERED: ONDANSETRON INJ 2 MG/ML 2 ML VIAL IV PRN (02:41)
[2021-12-04] MEDS ORDERED: HYDROmorphone INJ 0.5 MG/0.5 ML SYR IV PRN ×2 (02:41)
[2021-12-04] MEDS ORDERED: GLUCOSE 40% GEL 15 GM TUBE PO PRN (02:41)
[2021-12-04] MEDS ORDERED: GLUCOSE 10 TABS/TUBE PO PRN (02:41)
[2021-12-04] MEDS ORDERED: GLUCAGON FOR INJ 1 MG VIAL SQ PRN (02:41)
[2021-12-04] MEDS ORDERED: DEXTROSE 50% 50 ML SYRINGE IV PRN (02:41)
[2021-12-04] MEDS: LACTATED RINGER'S 1,000 ML IV SCH ×2 (02:50→11:02)
[2021-12-04] MEDS ORDERED: ACETAMINOPHEN 1,000 MG/100 ML VIAL IV PRN (03:15)
--- NOTE | 2021-12-04 04:26 | Urology Consultation ---
Date of Consultation December 04, 2021 Assessment & Plan (1) Renal hematoma: Patient has been admitted by the hospitalist service. We recommend proceeding as follows: Follow serial CBCs and monitor for drop in patient's hemoglobin hematocrit Follow vital signs closely Patient notes a precipitous drop in his hemoglobin and hematocrit or if he shows signs of hemodynamic compromise he may require embolization of his left kidney. At the time of my interview the patient noted that his pain was resolved he was noted to be hemodynamically stable without hypotension or tachycardia. We will continue to follow closely while patient is hospitalized History of Present Illness Reason for Consultation: Subcapsular hematoma of the left kidney Attending Physician: Mayra Olivas, DO History of Present Illness This is an 81-year-old male who presented to the emergency department secondary to left-sided flank pain that he notes was present yesterday. Patient says that he has a recent history of having nephrostomy tubes on the left-hand side that were replaced and ultimately recently removed. Patient notes that this procedure was performed at [facility]. Patient says that yesterday he developed some left-sided flank pain that would come and go and sometimes radiated to his shoulder. He notes that the pain was exacerbated by certain movements as well as coughing. The pain was described as sharp and would last for approximately 30 seconds and then self resolved. He denies any fevers, gustavo es, chills. He denies any nausea vomiting. Because of the pain he presented to the emergency department. In the emergency department the patient had labs and imaging which independent reviewed. CBC revealed white blood cell count was 7.3. Hemoglobin and hematocrit were 10.9 and 33.4. Chemistry profile showed sodium and potassium were normal. His BUN and creatinine were [address] scan of the abdomen and pelvis showed the patient had a 2.8 x 1.2 x 3.7 cm left perinephric fluid collection that was felt to represent a potential subcapsular hematoma. At the time of my interview he was resting comfortably in bed in no distress and stated that he felt fine Allergies Allergy/AdvReac Type Severity Reaction Status Date / Time ciprofloxacin [From Cipro] Allergy Intermediate Blister Verified 12/03/21 21:49 olmesartan Allergy Intermediate hypotension Verified 12/03/21 21:49 /dizziness peach Allergy Intermediate HIVES Verified 12/03/21 21:49 eggplant Allergy Unknown Hives Verified 03/28/22 03:00 amoxicillin AdvReac Severe DIARRHEA Verified 12/03/21 21:49 erythromycin base AdvReac Severe DIARRHEA Verified 12/03/21 21:49 Sulfa (Sulfonamide AdvReac Severe DIARRHEA Verified 12/03/21 21:49 Antibiotics) Home Medications Medication Instructions Recorded Confirmed Type tamsulosin 0.4 mg capsule (Flomax) 0.8 mg PO HS #0 cap 05/12/15 12/03/21 History lisinopril 2.5 mg tablet 2.5 mg PO HS #0 tab 06/18/16 12/03/21 History cholecalciferol (vitamin D3) 25 2,000 unit PO PM #0 11/12/16 12/03/21 History mcg (1,000 unit) capsule coenzyme Q10 200 mg capsule 200 mg PO QAM #0 01/14/18 12/03/21 History aspirin 81 mg tablet,delayed 81 mg PO QAM 02/05/20 12/03/21 History release (Aspirin Low Dose) vtplqlog-yhyh-pcrlr acid 200 1 tab PO BID 06/30/20 12/03/21 History mcg-lycopene 5 mg-boron 250 mcg tablet (Bladder 2.2) nitroglycerin 400 mcg/spray 400 mcg SUBLINGUAL DAILY PRN #4.1 g 12/22/20 12/03/21 Rx translingual aerosol econazole 1 % topical cream 1 appln TOP BID PRN 06/23/21 12/03/21 History lansoprazole 30 mg capsule,delayed 30 mg PO QAM 06/23/21 12/03/21 History release metoprolol succinate 25 mg 12.5 mg PO QAM 06/23/21 12/03/21 History tablet,extended release 24 hr dutasteride 0.5 mg capsule 0.5 mg PO DAILY #90 cap 06/29/21 12/03/21 Rx clopidogrel 75 mg tablet (Plavix) 75 mg PO DAILY 07/20/21 12/03/21 History atorvastatin 80 mg tablet (Lipitor) 80 mg PO PM #90 tab 07/24/21 12/03/21 Rx acetaminophen 500 mg tablet 1,000 mg PO Q6H PRN 12/03/21 12/03/21 History (Tylenol Extra Strength) repaglinide 1 mg tablet 1 mg PO TID 12/03/21 12/03/21 History Patient History Medical History Back pain with radiation Damon's esophagus Bifascicular block dating back to at least 2013 stress test (RBBB/LAFB)* Bladder cancer S/P surgery, BCG treatment (stopped 05/2017), chemo (completed 08/2018) BPH (benign prostatic hyperplasia) Coronary artery disease 06/2019 - [facility] x 1, 1997- stent x 1 Diabetes mellitus, type 2 NIDDM GERD (gastroesophageal reflux disease) controlled, stable, denies issues laying flat Hearing deficit BL BARAJAS History of dysplastic nevus History of inguinal hernia B/L Surgical History History of back surgery 04/2015. History of cardiac cath 06/2019 - [facility] - + stress test - [facility] x 1 2010- no stents 1997- stent x 1 AT [facility] History of colonoscopy History of cystoscopy History of esophagogastroduodenoscopy (EGD) History of hernia repair History of inguinal hernia repair BL History of surgery TURBT 04/02/2019: LMA #5, no issues reported on anesthesia progress note. 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 Beliefs That Will Affect Care: None marital status: / Current Living Situation: Spouse current occupational status: retired Other Information That Helps Us Care for You: No Feels Safe at Home: Yes Safety Concerns: Feels Safe At This Time Assistive Devices: Glasses, Hearing Aid - Bilateral, Hearing Aid - Left and Hearing Aid - Right Review of Systems Constitutional: no fever and no chills Eyes: + corrective lenses Ear, Nose, Mouth, Throat: no ear pain Respiratory: no cough and no dyspnea Cardiovascular: no chest pain Gastrointestinal: no abdominal pain, no nausea and no vomiting Genitourinary: + flank pain (Left-sided); no dysuria Musculoskeletal: + back pain (Left flank) Integumentary: no rash Neurologic: no localized weakness Physical Exam Constitutional: no acute distress Eyes: Wears glasses ENMT: Ears: no hearing impairment Mouth: no oropharynx abnormality Neck: trachea midline Respiratory: normal respiratory effort; no respiratory distress and no labored breathing Cardiovascular: Rate/Rhythm: regular rate and regular rhythm Gastrointestinal (Abdomen): Soft and nontender Musculoskeletal: No calf tenderness Skin: no rashes Neurologic: moves all extremities Psychiatric: A+Ox3, euthymic affect Genitourinary: Left flank was examined. There is no pain with percussion or palpation. There is no evidence of ecchymosis or hematoma or swelling. Results & Data ([facility]) Vital Signs (Past 12 Hours) Vital Signs Temp Pulse Pulse Resp BP BP Pulse Ox 12/04/21 03:26 36.4 C L 76 20 153/67 H 87 L 12/04/21 03:22 91 H 12/04/21 03:18 93 12/04/21 03:17 12/04/21 03:15 36.4 C L 76 20 153/67 H 87 L 12/04/21 00:00 68 16 122/66 92 12/03/21 22:24 91 H 20 150/80 H 91 12/03/21 21:00 77 73 18 160/81 H 94 12/03/21 20:22 36.6 C 80 18 155/81 H 96 Pulse Ox 12/04/21 03:26 12/04/21 03:22 12/04/21 03:18 93 12/04/21 03:17 87 L 12/04/21 03:15 12/04/21 00:00 12/03/21 22:24 12/03/21 21:00 12/03/21 20:22 PG Care Time/CCT Total # of Minutes Spent Total Time Spent with Patient: Total time spent is greater than 50% in coordination of care (as documented) at patient's floor/unit and/or counseling patient: Coding Level of Care Code 67641 Inpt Consult Level 5 Diagnoses Renal hematoma S37.012A Encounter type: initial encounter Laterality: left (1) Renal hematoma Encounter type: initial encounter Laterality: left Qualified Code(s): S37.012A - Minor contusion of left kidney, initial encounter
[2021-12-04 06:49] LABS: Basophils # (auto) 0.01 K/uL (0-0.2); Basophils % (auto) 0.2 %; Eosinophils % (auto) 4.8 %; Hematocrit (blood only) 29.9 % (42-52); Hemoglobin 9.7 g/dL (14.0-18.0); Immature Granulocytes # (auto) 0.01 K/uL (0.00-0.02); Immature Granulocytes % (auto) 0.2 %; Lymphocytes # (auto) 0.89 K/uL (1.2-3.4); Lymphocytes % (auto) 14.3 %; Mean Corpuscular Hemoglobin 27.9 pg (25-34); Mean Corpuscular Hgb Conc 32.4 g/dL (32-36); Mean Corpuscular Volume 85.9 fL (80-100); Mean Platelet Volume 9.6 fL (7.4-10.4); Monocytes # (auto) 0.79 K/uL (0.11-0.59); Monocytes % (auto) 12.7 %; Neutrophils # (auto) 4.24 K/uL (1.4-6.5); Neutrophils % (auto) 67.8 %; Platelet Count 150 K/uL (130-400); RDW Coefficient of Variation 14.5 % (11.5-14.5); Red Blood Count 3.48 M/uL (4.7-6.1); White Blood Count 6.24 K/uL (4.8-10.8)
--- NOTE | 2021-12-04 07:03 | XRay Report ---
XR chest 1V portable CLINICAL HISTORY: sob, abd pain. COMPARISON STUDY: 06/26/2021 TECHNIQUE: 1 view of the chest FINDINGS: Single frontal view of the chest demonstrates the cardiomediastinal silhouette to be within normal li mits. There is a decreased inspiratory effort with elevation of the hemidiaphragms and crowding of th e bronchovascular markings at the lung bases and centrally. The lungs are clear of alveolar opacities . There is no evidence for pleural effusion. There is no evidence for vascular congestion. There is n o acute osseous pathology. IMPRESSION: 1. There is a decreased inspiratory effort with otherwise no acute chest disease. ACT 112: Negative or not required by law. Electronically signed by: Geoff Salazar M.D. 12/04/2021 7:01 AM
[2021-12-04 07:11] LABS: Albumin Globulin Ratio 1.4 (0.9-2); Albumin Level 3.2 gm/dl (3.4-5.0); BUN Creatinine Ratio 17.6 (10-20); Bilirubin,Total 0.4 mg/dl (0.2-1.0); Calcium 8.6 mg/dl (8.5-10.1); Creatinine Clr Calc Pharmacy 37.6 ml/min; Est GFR (African American) 55.8 ml/min; Est GFR (Non-African American) 48.1 ml/min; Globulin 2.3 gm/dl (2.5-4.0); Potassium 4.2 mmol/L (3.5-5.1); Total Protein 5.5 gm/dl (6.0-8.3)
--- NOTE | 2021-12-04 07:19 | CT Scan Report ---
CT angio chest PE protocol CLINICAL HISTORY: Left lower chest pain. COMPARISON STUDY: CT chest without contrast from 08/09/2021 and portable chest from 12/03/2021 CT DOSE: 602.07 mGy.cm TECHNIQUE: CT Angio of the chest was performed.followed by image post processing with coronal, and s agittal MIP reformats. Contrast Volume: Optiray 320, 120 ml FINDINGS: Thyroid: Compared to the previous examination, there is again marked asymmetric enlargement of left l obe of the thyroid with a multinodular appearance. Vasculature: There is homogeneous perfusion of the pulmonary vasculature bilaterally. No intraluminal filling defects or evidence for pulmonary embolus is seen. Airway: The airway is clear. No endobronchial lesion is identified. Lungs: There is bibasilar atelectasis, left greater than right. Previously identified 5 mm pulmonary nodules or not well seen due to the atelectasis present. The lungs are otherwise clear of acute alveo lar opacities, air bronchograms or new pathologic pulmonary nodules. Pleura: There is no evidence for pleural effusion. There is no evidence for pneumothorax. Mediastinum: There is no evidence for pathologic adenopathy. The heart size is within normal limits. Extensive coronary artery calcification is again seen. The thoracic aorta is within normal limits. Th ere is no evidence for pericardial effusion. Esophagus: There is mucosal thickening involving the distal third of the esophagus. The presence of e sophagitis cannot be excluded. Upper abdomen:There is small hiatal hernia. Osseous structures: There is no acute osseous pathology. Degenerative changes are seen within the sp ine. Impression: 1. No CTA evidence for pulmonary embolus. 2. Bibasilar atelectasis, left greater than right. 3. Small bilateral pulmonary nodules or not well imaged due to the bibasilar atelectasis. 4. Prominent coronary artery calcification is again seen. 5. Mucosal thickening of the distal third of the esophagus. The presence of esophagitis cannot be exc luded. 6. Additional nonacute findings are delineated above. ACT 112: Negative or not required by law. Electronically signed by: Geoff Salazar M.D. 12/04/2021 7:17 AM
--- NOTE | 2021-12-04 07:30 | CT Scan Report ---
CT abd pelvis IV con only CLINICAL HISTORY: Left flank pain. Recent placement of left-sided double-J ureteral stent. COMPARISON STUDY: 07/24/2021 CT DOSE: TECHNIQUE: Standard CT of the Abdomen and Pelvis was performed with IV contrast. A dose lowering cherise hnique was utilized adhering to the principles of ALARA. Contrast Volume: Optiray 320, 120 ml. The patient did not receive oral contrast. FINDINGS: Abdominal cavity: There is no evidence for abdominal mass, adenopathy or ascites. Liver: There is homogeneous attenuation of the liver parenchyma. There is no evidence for enhancing m ass lesion. Spleen: There is homogeneous attenuation of the splenic parenchyma. There is no enhancing mass lesion . There is evidence for mild splenomegaly. Pancreas: There is homogeneous attenuation of the pancreatic parenchyma. There is no evidence for mas s lesion or peripancreatic fluid collection. Gall Bladder: The gallbladder is well distended with no evidence for intraluminal calculi, wall thick ening or pericholecystic edema. Adrenal glands: The adrenal glands are normal in size and attenuation. There is no evidence for enhan cing mass lesion. Kidneys: The patient has a history of previous sided nephrostomy tube with a small perirenal fluid co llection seen posteriorly on the left. There is a tract present from previous nephrostomy tube. This most likely represents a perirenal hematoma. No inflammatory changes or findings suspicious for absce ss are seen. 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 Ther e is still associated mild left-sided hydronephrosis. No definite calculi are identified. On the right side, there is no evidence for renal calculus or hydronephrosis. There is no evidence fo r enhancing renal mass bilaterally. Bowel: The bowel loops are normally placed within the abdomen and pelvis without evidence for dilatat ion or obstruction. There is no evidence for mass lesion. There is mild diverticulosis without eviden ce for diverticulitis. There is mild fecal stasis without evidence for impaction. There are no inflam matory changes present. There is no evidence for free air. There is a normal appendix in the right lo wer quadrant. Bladder: The bladder is within normal limits with no evidence for focal mass, calculus or diverticulu m. There is mild diffuse thickening of bladder wall which can be seen with chronic bladder outlet obs truction. : There is no evidence for pelvic mass or adenopathy. There is no evidence for pelvic ascites. Ther e is mild to moderate prostate enlargement. Vasculature: There is no evidence for aneurysmal dilatation of the abdominal aorta. Atherosclerotic c alcification is seen Osseous structures: There is no acute osseous pathology. Degenerative changes are present within the spine. IMPRESSION: 1. Left perinephric fluid collection most characteristic of a perinephric hematoma status post remova l of previous left nephrostomy tube. 2. 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 There is very mild residua l hydronephrosis present. 3. No other evidence for acute intra-abdominal or pelvic abnormality. 4. Additional nonacute findings are delineated above. ACT 112: Negative or not required by law. Electronically signed by: Geoff Salazar M.D. 12/04/2021 7:28 AM
[2021-12-04] MEDS: FINASTERIDE 5 MG TAB PO SCH ×2 (08:27→08:45)
[2021-12-04] MEDS: INSULIN ASPART PER UNIT SC SCH ×3 (08:29→16:55)
[2021-12-04] MEDS ORDERED: INSULIN GLARGINE SOLOSTAR 100 UNITS/ML 3 ML PEN SC SCH (09:00)
[2021-12-04] MEDS ORDERED: METOPROLOL SUCC 25MG EXT REL TAB PO SCH (09:00)
[2021-12-04] MEDS ORDERED: ASPIRIN 81 MG ECTAB PO SCH (09:00)
[2021-12-04] MEDS ORDERED: PANTOprazole 40 MG TAB PO SCH (09:00)
[2021-12-04 09:58] LABS: Estimated Average Glucose 171 mg/dl; Hemoglobin A1C 7.6 % (4.5-5.6)
[2021-12-04] MEDS ORDERED: cefTRIAXone SODIUM 2,000 MG in DEXTROSE 5% 50 ML IV SCH (10:00)
--- NOTE | 2021-12-04 12:30 | Discharge Summary ---
Date of Service December 04, 2021 Admission HPI Per Admitting Provider 81-year-old male with a past medical history of bladder cancer with recurrence status post recent nephrostomy with stent placement at [place], Damon's esophagus, diabetes, hypertension, BPH, coronary artery disease status post stent placement presented to the emergency department for evaluation of severe left flank pain diagnosed with left subcapsular renal hematoma. Patient states that he has a recent history of 2 nephrostomy tubes on the left they replaced 3 months ago he recently returned from [facility] where the tubes were removed and stents were placed. Patient states been having discomfort since that time however earlier today he began to have acute severe left flank pain which was worsened with coughing and certain movements. He described the pain as sharp and coming on suddenly lasting for 30 seconds or so. Patient will tried Tylenol without significant relief. He notes that he is voiding on his own without difficulty denying any fevers or chills, nausea or vomiting, chest pressure or chest pain, no cough. In the emergency department routine labs were obtained CBC was notable for trace anemia, chemistries demonstrated an elevated creatinine to 1.57 however when compared to prior chemistries it appears his baseline is 1.5-1.3, glucose 142 CMP demonstrated an AP of 108 UA demonstrated elevated specific gravity, trace urine protein, 3+ blood, 1+ leuks, greater than [address] abdomen pelvis demonstrating new 2.8 x 1.2 x 3.7 cm crescentic posterior left perinephric hypodense collection representing a perinephric or subcapsular hematoma. Chest CT demonstrating moderate coronary artery atherosclerosis, bilateral lower lobe opacities atelectasis versus pneumonia, no pathological adenopathy bilateral thyroid nodules and masses left greater than right measuring 3.5 cm.The emergency department physician spoke with Dr. Scott on-call urologist at [place] who stated the patient does not need emergent transfer recommending a hospital stay with observation, IV antibiotics, IV hydration, pain control and close watch on the hematoma with reimaging in 24 hours. While in the emergency department the patient was given IV Zofran, IV morphine, IV Dilaudid, IV Tylenol and IV ceftriaxone. The hospital service was consulted for admission. On arrival to the room patient was lying comfortably in bed. He recalled in HPI similar to that as described above. He notes that he currently has active cancer, the plan was to keep his ureters open with stents while he underwent radiation scheduled for December 13 at [place]. That was the purpose of this most recent procedure. He notes overall he is doing well and pain is well controlled at present. Acute concerns relate to pain control all questions answered Admission Exam Per Admitting Provider General: No acute distress HEENT: Normocephalic atraumatic Neck: No significant lymphadenopathy, trachea midline, normal to visual inspection Cardiac: Regular rate and rhythm, normal S1, normal S2, I did not appreciated any significant murmurs rubs or gallops, I did not appreciate any significant pedal edema, No calf tenderness, capillary refill is less than 3 seconds Respiratory: Clear to auscultation bilaterally with symmetrical chest rise, I did not appreciate any significant wheezes, rales, rhonchi, no increased work of breathing GI: Normal bowel sounds, soft, nontender in all 4 quadrants, nondistended, left cva tenderness. surgical sites clean dry and intact MSK: No sensory or motor changes, moves all extremities without issue, extre mities are warm and well-perfused Skin: [place], clean, dry, intact. Neuro: Alert and oriented x3 Psych: Calm, cooperative, logical thought process Principal Diagnosis Left Subcapsular Renal Hematoma Discharge Exam General: A&Ox3. NAD. Cooperative. HEENT: Atraumatic, normocephalic. Pulm: CTAB A&P. -wheezes, -rales, -rhonchi. Symmetrical chest rise. No increase work of breathing. No respiratory distress. Cardiac: RRR, -mrg. Radial pulses intact and symmetrical. No LE edema. Abdominal: soft, non-tender, non-distended, BS x 4 Skin: warm, dry, no rash Discharge Data Allergies Allergy/AdvReac Type Severity Reaction Status Date / Time ciprofloxacin [From Cipro] Allergy Intermediate Blister Verified 12/03/21 21:49 olmesartan Allergy Intermediate hypotension Verified 12/03/21 21:49 /dizziness peach Allergy Intermediate HIVES Verified 12/03/21 21:49 eggplant Allergy Unknown Hives Verified 12/04/21 03:00 amoxicillin AdvReac Severe DIARRHEA Verified 12/03/21 21:49 erythromycin base AdvReac Severe DIARRHEA Verified 12/03/21 21:49 Sulfa (Sulfonamide AdvReac Severe DIARRHEA Verified 12/03/21 21:49 Antibiotics) Consultations 12/04/21 00:07 ED Decision to Admit Stat 12/04/21 02:41 Consult Urology Routine Ordered Studies 12/03/21 20:40 CT abd pelvis IV con only Urgent 12/03/21 21:15 CT angio chest PE protocol Urgent Hospital Course (1) Acute left flank pain: 81-year-old male with a past medical history of bladder cancer with recurrence (status post recent nephrostomy with stent placement at [place] on 11/30), Damon's esophagus, T2DM (A1c 7.6 during this hospitalization), h ypertension, BPH, coronary artery disease status post stent placement presented to the emergency department for evaluation of severe left flank pain diagnosed with left subcapsular renal hematoma. Left Subcapsular Renal Hematoma Findings per CT A/P - suspect due to post-operative complication of nephrostomy tube removal on 11/30. - UA positive for blood as well as LE/WBC/bacteria/20-30 epithelial cells (cx pending) - Urology consulted - did not recommend surgical intervention as patient was hemodynamically stable, without caro hematuria - s/p Tylenol 1g IV x1, Morphine 4mg IV x1, Dilaudid 0.5mg IV x1 - with resolution of pain - flank pain resolved, and he did not require pain medications for majority of hospitalization - can use PRN for pain after discharge - was started on Ceftriaxone 2g IV Q24H - no need for abx after discharge as patient does not have dysuria, fever/chills, or other urinary symptoms - Plavix held on admission - continue to hold on discharge, until cleared by Urology - continue Aspirin - f/u with PCP and Urology after discharge Acute Blood Loss Anemia Hgb 10.9 --> 9.7, with baseline of 13 in 06/2021. Suspect acute blood loss due to above. However patient is hemodynamically stable with resolved pain, the further drop today is most likely hemodilutional vs lab variation. - did not require transfusions - repeat H/H at 1600: - patient will trend CBC on 12/05 to ensure stability - f/u with PCP as stated above Bladder cancer - Continued dutasteride BPH - Continue tamsulosin Coronary artery disease status post stent placement History of STEFANIE placement in the late with in-stent restenosis and subsequent stent placement in 2018. On dual antiplatelet therapy. - Resume Plavix when able, as stated above - continue Aspirin - Continue atorvastatin 80 mg daily GERD - Continue lansoprazole Hypertension - Continue metoprolol and Lisinopril T2DM A1c 7.6 on 12/04/2021 (largely stable from 7.4 in 06/2021). At goal, given advanced age and comorbidities. - continue home Repaglinide (2) Renal hematoma: (3) Urinary retention: (4) Atherosclerosis of coronary artery: (5) Bladder carcinoma: (6) CAD (coronary artery disease): Total Time Total Time Spent Total Time Spent (In Minutes): <30 minutes Discharge Plan Discharge Items Patient Disposition: Home - Self-Care Reason For Visit: CANCER PAIN Discharge Diagnosis: Left Subcapsular Renal Hematoma Condition on Discharge: Fair Activity: Per Instructions section Non-emergency contact: Primary Care Provider and Urologist Call non-emergency contact if: your symptoms worsen, your pain is not controlled and you have a fever Follow-up/Referrals: Pb Han, [Primary Care Provider] - (please schedule f/u within 5-7 days) Diet: Regular Addtl Attending Provider Instructions: You were admitted to [facility] on 12[facility]2021 for left flank pain due to a collection of blood next to your left kidney, called a hematoma. You were started on IV fluids and an IV antibiotic called Ceftriaxone. Our Urologist was consulted and did not recommend surgical intervention. You did well throughout this short hospitalization, without need for pain medications for more than 12 hours, and you did not have any overt blood in your urine. You had several repeat blood tests showing stability in your blood counts (hemoglobin). You will be discharged in improved, stable condition on 12/04. You will need to get repeat blood work on 12/05, to ensure that your hemoglobin remains stable. Please get this done at the [facility] [address] lab. Please do not re-start your Plavix until you follow up with your PCP. You should follow up with your PCP in 3-5 days. You should also follow up with Urology. You can continue to take your other home medications as scheduled. Please do not hesitate to go back to the Emergency Room if your pain worsens, or if you start to feel lightheaded, dizzy or faint. Pending Studies at Discharge: No Stand-Alone Forms: My [facility], Smoking Cessation Medications and DC Order Prescriptions: Continued tamsulosin [Flomax] 0.4 mg Capsule 0.8 mg PO HS Qty: 0 RF: 0 lisinopril 2.5 mg Tablet 2.5 mg PO HS Qty: 0 RF: 0 cholecalciferol (vitamin D3) 1,000 unit Capsule 2,000 unit PO PM Qty: 0 RF: 0 coenzyme Q10 200 mg Capsule 200 mg PO QAM Qty: 0 RF: 0 dutasteride 0.5 mg capsule 0.5 mg PO DAILY Qty: 90 RF: 3 atorvastatin [Lipitor] 80 mg tablet 80 mg PO PM Qty: 90 RF: 3 aspirin [Aspirin Low Dose] 81 mg tablet,delayed release (DR/EC) 81 mg PO QAM RF: 0 nitroglycerin 400 mcg/spray aerosol,spray 400 mcg Sublingual DAILY PRN (Reason: Angina) Qty: 4.1 RF: 2 Bladder 2.2 200-5-250 mcg-mg-mcg Tablet 1 tab PO BID RF: 0 acetaminophen [Tylenol Extra Strength] 500 mg Tablet 1,000 mg PO Q6H PRN (Reason: Pain) RF: 0 repaglinide 1 mg tablet 1 mg PO TID RF: 0 econazole 1 % cream 1 appln TOP BID PRN (Reason: Rash) RF: 0 lansoprazole 30 mg capsule,delayed release(DR/EC) 30 mg PO QAM RF: 0 metoprolol succinate 25 mg tablet extended release 24 hr 12.5 mg PO QAM RF: 0 Discontinued clopidogrel [Plavix] 75 mg Tablet 75 mg PO DAILY RF: 0 Discharge Orders: Discharge Order (Routine); Ordered 12/04/21 Ordered By: Emre Cartwright/Other Patient Handouts: Managing Type 2 Diabetes Admission Data Admit Date/Time: 12/04/21 01:44 Attending Provider: Pedro Wise Admit Provider: Abran Olivas I. Primary Care Provider: Pb Han Other Providers: Mayra Olivas ; Nick Fischer ; Rohit Mccoy ; Lokesh Denton ; Bettina Keene ; Hayden Tamayo ; Henny Block ; Jada Evans ; Lorraine Gutierrez ; Emre Chaudhary ; Johnson Monsivais ; Nanette Carranza ; Danuta Gutierrez ; Otoniel Mosher Other Interventions: Discharge Summary Assessment (RN) Last Done: 12/04/21 16:52 Supervising Physician Co-Signing Physician Notes I personally examined the patient and verified all levine points of history and exam, discussed case, and agree with decision making with Dr Angel Feeling better. Actually saw patient walking in the hallway prior to finding him in his room. He notes his pain is essentially gone, only returns if he coughs or laughs or sneezes, and then it is very fleeting. Does not feel weak, lightheaded, dizzy. Overall much better. Feels up to going home. Vitals noted, in general he is awake and alert pleasant no distress. HEENT normocephalic atraumatic mucous membranes moist. Breathing unlabored no accessory muscle use good effort. Gait steady and stable. Skin without rashes, pallor, icterus. No CVA tenderness. Renal bleeding with subsequent acute blood loss anemiaseems to have totally stabilized, follow-up hemoglobin this afternoon stable compared to this morning, and I suspect his drop overnight was much more dillutional from IV fluid than true from any ongoing bleeding. Stable for home. Close outpatient follow-up Otherwise as above Resident Activity Tracking Resident Involvement: Resident Care Provided Care Provided: Adult Hospital Medicine
[2021-12-04 16:15] LABS: Hematocrit (blood only) 28.6 % (42-52); Hemoglobin 9.4 g/dL (14.0-18.0)
[2021-12-04] MEDS ORDERED: CHOLECALCIFEROL 1,000 UNITS 25 MCG TAB PO SCH (21:00)
[2021-12-04] MEDS ORDERED: FINASTERIDE 5 MG TAB PO SCH (21:00)
[2021-12-04] MEDS ORDERED: ATORVASTATIN 40 MG TAB PO SCH (21:00)
[2021-12-04] MEDS ORDERED: TAMSULOSIN HCL 0.4 MG CAP PO SCH (21:00)
== END 2021-12-04 17:35 | disposition home or self-care (01) ==
LOC: 2N 20:15 → ED 20:15 → SUATTDRO 12-04 01:44 → 2N 12-04 02:15
DX: E11.9 Type 2 diabetes mellitus without complications; K21.9 Gastro-esophageal reflux disease without esophagitis; C67.9 Malignant neoplasm of bladder, unspecified; Z79.82 Long term (current) use of aspirin; D64.9 Anemia, unspecified; Z91.018 Allergy to other foods; R10.9 Unspecified abdominal pain; E87.8 Other disorders of electrolyte and fluid balance, not elsewhere classified; Z95.5 Presence of coronary angioplasty implant and graft; I10 Essential (primary) hypertension; Z79.02 Long term (current) use of antithrombotics/antiplatelets; Z79.899 Other long term (current) drug therapy; S37.012A Minor contusion of left kidney, initial encounter; Z88.8 Allergy status to other drugs, medicaments and biological substances; Z88.1 Allergy status to other antibiotic agents; I25.10 Atherosclerotic heart disease of native coronary artery without angina pectoris; Z79.84 Long term (current) use of oral hypoglycemic drugs; Z88.2 Allergy status to sulfonamides; N40.0 Benign prostatic hyperplasia without lower urinary tract symptoms

== ENCOUNTER 2025-06-03 22:48 | Observation (INO) ==
--- NOTE | 2025-06-03 23:01 | Emergency Department Note ---
Impression & Plan Hyperglycemia due to diabetes mellitus, Chronic kidney disease, stage 4 (severe), Elevated troponin, Urothelial carcinoma ED Provider Note CHIEF COMPLAINT: High blood sugar HISTORY OF PRESENTING ILLNESS: This 84-year-old male patient presents to the emergency department with his for evaluation of elevated blood sugars. The patient states that he received steroids after his chemotherapy today and his blood sugar is now over 400 at home for the past couple of hours. This was his 2nd dose of this Chemo treatment. He has never had radiation therapy. The patient was sent to the ER by the on-call oncologist due to his elevated blood sugars. His blood sugar in triage was 456. They increased his long lasting insulin by 2 units today (10 units in AM and 6 units in PM) due to the steroids, but it continues to increase. He does not have any short acting insulin at home. Normally his blood sugars are well controlled and feels that it is just from the steroids. No recent fevers, cough, or URI symptoms. Denies abdominal pain, nausea, vomiting, chest pain, or SOB. Denies any urinary symptoms. Denies diarrhea or problems with his BMs recently. Denies mental status changes. The patient last saw oncology on 05/13/25 secondary to a history of urothelial carcinoma in situ. The patient has developed diarrhea from Keytruda in the past so it was discontinued. Recent MRI of the abdomen that showed progression of his bladder cancer with new pelvic lymph nodes and extension into the penis. PET scan also showed progressive disease. He was started with cycle 1 day 1 of Gemcitabine Carboplatin. at his office visit on 05/13/25 the patient stated that he feels the same as his previous visits. REVIEW OF SYSTEMS: See HPI for pertinent positives and pertinent negatives. ALLERGIES: See below MEDICATIONS: See below PAST MEDICAL HISTORY: See below PHYSICAL EXAM: VITALS: Vitals are noted on the nurse's note and reviewed by myself. GENERAL: The patient is chronically ill in appearance, but non toxic, in no acute distress, non-diaphoretic. SKIN: Capillary refill <2 sec. EYES: PERRLA. EOMI. Conjunctivae without injection, sclerae without icterus. NOSE: Patent without discharge. MOUTH: Mucous membranes moist. Uvula midline. Airway patent. NECK: Supple without nuchal rigidity. HEART: Regular rate and rhythm without murmurs gallops or rubs. LUNGS: Clear to auscultation bilaterally without wheezes, rales or rhonchi. No retractions or accessory muscle use. ABDOMEN: Positive bowel sounds x 4. Normal tympanic percussion. Soft, nontender to palpation. No masses or hepatosplenomegaly. Cornelius sign negative. No CVA tenderness. No guarding, rigidity, or rebound tenderness. No focal RLQ or LLQ tenderness. NEURO: Patient was alert and oriented. No focal neurological deficits. DIFFERENTIAL DIAGNOSIS: Differential diagnosis includes hyperglycemia, DKA, electrolyte abnormality, dehydration, or others. ED COURSE AND MEDICAL DECISION MAKING: HISTORY FROM INDEPENDENT HISTORIAN: Additional history obtained from the patient's MEDICATIONS GIVEN: 500 mL normal saline solution bolus. Insulin 2 units IV. MONITOR: Continuous wood router hand: Order was placed for continuous wood router hand. Patient was placed on the wood router hand and continuous pulse ox. Patient was noted to be in normal sinus rhythm at an initial rate of 70 bpm per my interpretation. EKG: EKG was interpreted by myself as sinus rhythm at 63 bpm with sinus arrhythmia and right bundle branch block. However, no acute ST or T wave changes. INTERPRETATION OF LABS: I interpreted the labs with full lab results as below in the lab section of this note. Laboratory results pertinent to the emergent complaint are discussed in the MDM section below. The patient was advised to follow up with their PCP and/or specialist(s) for further outpatient monitoring and management of any abnormal results. INTERPRETATION OF IMAGING: Imaging studies were interpreted by myself and read by radiology as per the imaging section of this note. The patient was advised to follow up with their PCP and/or specialist(s) for further outpatient management of any non-emergent abnormal findings. Chest x-ray showed subtle bilateral lower lung lobe reticulation and tiny atelectatic bands which are more prominent on the left side, but these findings are stable. No acute cardiopulmonary abnormalities identified. EXTERNAL RECORDS REVIEWED: I reviewed the patient's outpatient oncology office visit note as summarized above. CHRONIC MEDICAL/SOCIAL CONDITIONS AFFECTING CARE: history of urothelial carcinoma in situ and diabetes currently undergoing chemotherapy and receiving IV steroids CONSULTATIONS: On-call hospitalist MDM SUMMARY: I examined the patient. The patient recently started a new regimen of chemotherapy and received his second dose today. He has been receiving steroids with the chemotherapy and it has been affecting his blood sugars. The patient is currently only on long-acting insulin and does not have short acting insulin at home. The patient increased his long-acting insulin by 2 units today, but his blood sugars were still over 400 all evening. The patient was advised to come to the ER by his oncologist. The patient denies any symptoms other than the elevated blood sugars. An IV lock was placed and labs were drawn. The patient was given 500 mL normal saline solution bolus which improved his blood sugar from 456 to 387. The patient was then given 2 units of insulin with improvement of his blood sugar to 358. White blood cell count elevated at 18.47. Hemoglobin low, but stable at 8.7. Platelet count normal at 246. Coags were normal. VBG with a pH of 7.31 and pCO2 of 36, but otherwise normal. Creatinine elevated at 2.82, but actually improved from his most recent lab of 3.28 on 06/02/2025. BUN also improved to 65 from 70 on 05/29/2025. Glucose 442 and alk phos 161, but CMP otherwise without concerning abnormalities. Magnesium normal. High-sensitivity troponin elevated at 20.8 and increased to 28.7. EKG without evidence for STEMI. Urinalysis with trace protein, trace glucose, and trace blood with no evidence for UTI. Chest x-ray showed subtle bilateral lower lung lobe reticulation and tiny atelectatic bands which are more prominent on the left side, but these findings are stable. No acute cardiopulmonary abnormalities identified. I had a meaningful discussion about this patient with Dr. Carvalho who agrees with my assessment and the treatment plan. Due to the patient's poorly controlled blood sugars along with the increasing troponin, we feel the patient would benefit from admission for further evaluation and treatment. I spoke with the on-call hospitalist who agreed to admit the patient for further management. Please refer to their dictation for further details. The patient's care was transferred in stable condition. DIAGNOSIS: Hyperglycemia due to diabetes Elevated troponin Chronic kidney disease Urothelial carcinoma in situ Past Med/Surg History Problem List (Updated 06/04/25 @ 05:41 by Eli Tang PA-C) Urothelial carcinoma (Acute) Elevated troponin (Acute) Hyperglycemia due to diabetes mellitus (Acute) Diarrhea Malnutrition Chronic kidney disease, stage 4 (severe) (Acute) Anemia Vitamin D deficiency Acute kidney injury Stage 3b chronic kidney disease Renal mass S/P ureteral stent placement (Acute) Renal hematoma (Acute) First degree atrioventricular block by electrocardiogram Sinus bradycardia by electrocardiogram History of colon polyps Encounter for pre-operative examination Antiplatelet or antithrombotic long-term use Presence of drug coated stent in LAD coronary artery CAD (coronary artery disease) Seborrheic keratosis Multiple benign nevi Malignant neoplasm of bladder, unspecified Lentigines Impotence, organic Hemangioma of skin H/O esophageal reflux Erectile dysfunction Dysuria Dyslipidemia Calcium oxalate crystals in urine 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 Atypical nevi Atherosclerosis of coronary artery Angioma Actinic keratosis Bifascicular block dating back to at least 2013 stress test (RBBB/LAFB)* Hypertension Bladder cancer S/P surgery, BCG treatment (finished recent rfound 03/2024), chemo (completed 08/2018) Urinary retention UTI (urinary tract infection) (Acute) Pneumonia Heart disease Diabetes Herniation of lumbar intervertebral disc with radiculopathy Face lacerations Medical History (Updated 06/04/25 @ 05:41 by Eli Tang PA-C) Status post insertion of drug-eluting stent into left anterior descending (LAD) artery First degree AV block follows with Dr. Snyder History of COVID-27 Aug 2023 Erectile dysfunction Dyslipidemia Hypertension Hx of bladder cancer S/P surgery, BCG treatment (finished 03/31/24) and chemo Damon's esophagus Hearing deficit B/L BARAJAS History of dysplastic nevus Coronary artery disease 06/2019 - [facility] x 1, 1997- stent x 1 BPH (benign prostatic hyperplasia) GERD (gastroesophageal reflux disease) controlled, stable, denies issues laying flat Diabetes mellitus, type 2 NIDDM Back pain with radiation controlled per pt Surgical History History of tooth extraction History of tonsillectomy S/P ureteral stent placement since removed History of inguinal hernia repair bilat History of surgery UMBILICAL FISTULA History of surgery TURBT 04/02/2019: LMA #5, no issues reported on anesthesia progress note; also TURBT 12/13/21; multiple TURBT; pt had TURBT/TURP [facility] 07/20/21: MAC without issue History of back surgery lumbar > fusion History of esophagogastroduodenoscopy (EGD) History of colonoscopy History of cardiac cath 06/2019 - [facility] - + stress test - [facility] x 1 2010- no stents 1997- stent x 1 AT [place] History of cystoscopy Family History (Updated 04/27/25 @ 16:59 by Kristi Miller RN) Brother History of anesthesia reaction HICCUPS Hearing loss Hypertension Heart disease Testicular cancer Allergies Coronary heart disease Diabetes Father Heart disease Hypertension Mother Heart disease Uncle Heart disease Cancer Hypertension Nephrolithiasis Denies family history of Clotting disorder Social History (Updated 04/27/25 @ 14:02 by Kristi Miller RN) Smoking Status: Never smoker Second Hand Exposure: No; Do You Dip or Chew Tobacco: No; Hx Alcohol Use: No Hx Substance Use: No Preferred Language: Filipino Communication Ability: Effective Visual Impairment: No Limitations Hearing Ability: Normal Dialysis Tech Required: No Beliefs That Will Affect Care: Judaism Judaism Beliefs: Baptist > no pork marital status: Current Living Situation: Spouse current occupational status: retired How many Children do You have: 2 How many Children do You have Comment: 1 age 50 and 1 (2007) Feels Safe at Home: Yes Diet: other and regular Diet Comment: no pork caffeine: Yes (1 cup daily) during the past year weight has: decreased > 10 lbs Dental Care, Regularly: Yes Physical Activity Frequency: Does not Exercise Seatbelt Use: always Do you think of yourself as: straight/heterosexual Gender Identity: Male Assistive Devices: Glasses and Hearing Aid - Bilateral Allergies Allergies Allergy/AdvReac Type Severity Reaction Status Date / Time ciprofloxacin [From Cipro] Allergy Intermediate Blister Verified 06/03/25 23:38 olmesartan Allergy Intermediate hypotension Verified 06/03/25 23:38 /dizziness peach Allergy Intermediate HIVES Verified 06/03/25 23:38 sulfamethoxazole Allergy Intermediate sores Verified 06/03/25 23:38 [From Bactrim] trimethoprim [From Bactrim] Allergy Intermediate sores Verified 06/03/25 23:38 eggplant Allergy Unknown Hives Verified 06/03/25 23:38 amoxicillin AdvReac Severe DIARRHEA Verified 06/03/25 23:38 erythromycin base AdvReac Severe DIARRHEA Verified 06/03/25 23:38 Sulfa (Sulfonamide AdvReac Severe DIARRHEA Verified 06/03/25 23:38 Antibiotics) pembrolizumab [From Keytruda] AdvReac Unknown Diarrhea Verified 06/03/25 23:38 Home Meds Home Medications Medication Instructions Recorded Confirmed cholecalciferol (vitamin D3) 25 2,000 unit PO PM ##0 11/12/16 06/03/25 mcg (1,000 unit) capsule coenzyme Q10 200 mg capsule 200 mg PO QAM ##0 01/14/18 06/03/25 ahepidwv-gtex-zopyi acid 200 1 tab PO BID 06/30/20 06/03/25 mcg-lycopene 5 mg-boron 250 mcg tablet (Bladder 2.2) aspirin 81 mg tablet,delayed 81 mg PO HS 04/16/23 06/03/25 release (Iraj Low Dose Aspirin) desonide 0.05 % topical cream 1 applic topical BID PRN FLARE UPS 12/15/24 06/03/25 diphenoxylate-atropine 2.5 1 tab PO DIRECTED PRN Diarrhea 12/15/24 06/03/25 mg-0.025 mg tablet (Lomotil) famotidine 40 mg tablet 40 mg PO BID 12/15/24 06/03/25 insulin glargine 100 unit/mL (3 0 unit subcut BID 12/15/24 06/03/25 mL) subcutaneous pen (Lantus Solostar U-100 Insulin) olanzapine 2.5 mg tablet 2.5 mg PO DIRECTED PRN WITH 05/14/25 06/03/25 CHEMO oxycodone 5 mg tablet 5 mg PO Q6H PRN Pain 05/14/25 06/03/25 Previous Rx's Medication Instructions Recorded econazole nitrate 1 % topical cream 1 applic topical BID PRN Rash #30 04/17/24 grams dutasteride 0.5 mg capsule 0.5 mg PO HS #90 caps 06/03/24 tamsulosin 0.4 mg capsule 0.8 mg (2 x 0.4 mg) PO HS #180 caps 06/03/24 atorvastatin 80 mg tablet (Lipitor) 80 mg PO PM #90 tabs 08/10/24 nitroglycerin 400 mcg/spray 400 mcg sublingual DAILY PRN 08/10/24 translingual aerosol Angina #4.1 grams metoprolol succinate 25 mg 12.5 mg (1/2 x 25 mg) PO DAILY #45 09/10/24 tablet,extended release 24 hr tabs Myrbetriq 25 mg tablet,extended 25 mg PO QDL #90 tabs 03/30/25 release (mirabegron) lansoprazole 30 mg capsule,delayed 30 mg PO QAM #90 caps 04/01/25 release mometasone 0.1 % topical cream 1 applic topical BID #45 grams 04/19/25 Results & Data (ED) Vital Signs Vital Signs - 24 hr 06/03/25 22:50 06/03/25 23:00 06/03/25 23:00 Temperature 36.2 C L 36.5 C Temperature Source Temporal Artery Scan Oral Pulse Rate 79 66 Pulse Rate [Right Finger] 66 Respiratory Rate 17 18 18 Respiratory Effort / Characteristics Non-Labored Spontaneous Non-Labored Spontaneous Respiratory Depth Normal Normal Respiratory Pattern Regular Regular Blood Pressure 119/63 Blood Pressure [Right Arm] 133/95 Blood Pressure Mean 81 Blood Pressure Mean [Right Arm] 107 Pulse Oximetry 98 99 99 Oxygen Delivery Method Room Air Room Air Room Air Sepsis Recent Fever Within 48 Hours No Sepsis New/Unexplained Change in Mental Status N/A Sepsis Action Taken by Nursing No Action Required 06/04/25 00:00 06/04/25 02:00 Temperature 36.5 C 36.5 C Temperature Source Oral Oral Pulse Rate Pulse Rate [Right Finger] 64 63 Respiratory Rate 18 17 Respiratory Effort / Characteristics Non-Labored Spontaneous Non-Labored Spontaneous Respiratory Depth Normal Normal Respiratory Pattern Regular Regular Blood Pressure Blood Pressure [Right Arm] 132/62 110/52 L Blood Pressure Mean Blood Pressure Mean [Right Arm] 85 71 Pulse Oximetry 97 100 Oxygen Delivery Method Room Air Room Air Sepsis Recent Fever Within 48 Hours Sepsis New/Unexplained Change in Mental Status Sepsis Action Taken by Nursing Laboratory Data 06/04/25 03:37 06/04/25 03:37 Lab Results 06/03/25 06/03/25 06/04/25 Range/Units 22:53 22:56 00:58 WBC 18.47 H (4.8-10.8) K/ul RBC 3.04 L (4.70-6.10) M/uL Hgb 8.7 L (14.0-18.0) g/dl Hct 26.5 L (42.0-52.0) % MCV 87.2 (80.0-100.0) fL MCH 28.6 (25.0-34.0) pg MCHC 32.8 (32.0-36.0) g/dL RDW Std Deviation 41.4 (36.4-46.3) fL RDW Coeff of Lissette 14.0 (11.5-14.5) % Plt Count 246 (130-400) K/uL MPV 9.9 (9.4-12.4) fL Immature Gran % (Auto) 8.4 % Neut % (Auto) 85.5 % Lymph % (Auto) 3.7 % [place] % (Auto) 2.2 % Eos % (Auto) 0.0 % Baso % (Auto) 0.2 % Neut # (Auto) 15.78 H (1.40-6.50) K/uL Lymph # (Auto) 0.68 L (1.20-3.40) K/uL [place] # (Auto) 0.41 (0.11-0.59) K/uL Eos # (Auto) 0.00 (0.00-0.50) K/uL Baso # (Auto) 0.04 (0.00-0.20) K/uL Immature Gran # (Auto) 1.56 H (0.01-0.20) K/uL Absolute Nucleated RBC 0.02 (0.00-0.12) K/uL Nucleated RBC % (auto) 0.1 % Dohle Bodies 1+ PT 11.5 (9.0-12.0) Seconds INR 1.1 (0.9-1.1) APTT 24 (21-31) Seconds PTT Ratio 0.9 VBG pH 7.31 L (7.36-7.41) VBG pCO2 36 L (38-50) mmHg VBG pO2 32 mmHg VBG HCO3 18 mmol/L VBG O2 Saturation < 60.0 % VBG Base Excess -7.4 mEq/L Sodium 137 (136-145) mmol/L Potassium 4.5 (3.5-5.1) mmol/L Chloride 108 H (98-107) mmol/L Carbon Dioxide 20 L (21-32) mmol/L Anion Gap 9 (3-11) BUN 65 H (6-23) mg/dl Creatinine 2.82 H D (0.6-1.4) mg/dl Est Cr Clr Drug Dosing 16.9 ml/min eGFR 21.26 BUN/Creatinine Ratio 23.0 H (10-20) Glucose 442 H* (70-99(Fasting)) mg/dl POC Glucose 456 H* 387 H* (70-99) mg/dl Calcium 8.8 (8.6-10.3) mg/dl Magnesium 2.2 (1.7-2.4) mg/dl Total Bilirubin 0.4 (0.2-1.0) mg/dl AST 29 (13-39) U/L ALT 37 (7-52) U/L Alkaline Phosphatase 161 H (34-104) U/L Troponin I High Sens 20.8 H (0-20) pg/ml Total Protein 6.9 (6.0-8.3) gm/dl Albumin 3.8 (3.4-5.0) gm/dl Globulin 3.1 (2.5-4.0) gm/dl Albumin/Globulin Ratio 1.2 (0.9-2) Urine Color Urine Appearance (Clear) Urine pH (4.5-7.5) Ur Specific [place] (1.000-1.030) Urine Protein (Negative) Urine Glucose (UA) (Negative) Urine Ketones (Negative) Urine Blood (Negative) Urine Nitrite (Negative) Urine Bilirubin (Negative) Urine Urobilinogen (Negative) Ur Leukocyte Esterase (Negative) Urine WBC (Auto) (0-5) /hpf Urine RBC (Auto) (0-2) /hpf U Hyaline Cast (Auto) (0-2) /lpf U Epithel Cells (Auto) (0-2) /hpf Urine Bacteria (Auto) (None Seen) Urine Comment 06/04/25 06/04/25 06/04/25 Range/Units 01:19 01:20 02:08 WBC (4.8-10.8) K/ul RBC (4.70-6.10) M/uL Hgb (14.0-18.0) g/dl Hct (42.0-52.0) % MCV (80.0-100.0) fL MCH (25.0-34.0) pg MCHC (32.0-36.0) g/dL RDW Std Deviation (36.4-46.3) fL RDW Coeff of Lissette (11.5-14.5) % Plt Count (130-400) K/uL MPV (9.4-12.4) fL Immature Gran % (Auto) % Neut % (Auto) % Lymph % (Auto) % [place] % (Auto) % Eos % (Auto) % Baso % (Auto) % Neut # (Auto) (1.40-6.50) K/uL Lymph # (Auto) (1.20-3.40) K/uL [place] # (Auto) (0.11-0.59) K/uL Eos # (Auto) (0.00-0.50) K/uL Baso # (Auto) (0.00-0.20) K/uL Immature Gran # (Auto) (0.01-0.20) K/uL Absolute Nucleated RBC (0.00-0.12) K/uL Nucleated RBC % (auto) % Dohle Bodies PT (9.0-12.0) Seconds INR (0.9-1.1) APTT (21-31) Seconds PTT Ratio VBG pH (7.36-7.41) VBG pCO2 (38-50) mmHg VBG pO2 mmHg VBG HCO3 mmol/L VBG O2 Saturation % VBG Base Excess mEq/L Sodium (136-145) mmol/L Potassium (3.5-5.1) mmol/L Chloride (98-107) mmol/L Carbon Dioxide (21-32) mmol/L Anion Gap (3-11) BUN (6-23) mg/dl Creatinine (0.6-1.4) mg/dl Est Cr Clr Drug Dosing ml/min eGFR BUN/Creatinine Ratio (10-20) Glucose (70-99(Fasting)) mg/dl POC Glucose 358 H* (70-99) mg/dl Calcium (8.6-10.3) mg/dl Magnesium (1.7-2.4) mg/dl Total Bilirubin (0.2-1.0) mg/dl AST (13-39) U/L ALT (7-52) U/L Alkaline Phosphatase (34-104) U/L Troponin I High Sens 28.7 H (0-20) pg/ml Total Protein (6.0-8.3) gm/dl Albumin (3.4-5.0) gm/dl Globulin (2.5-4.0) gm/dl Albumin/Globulin Ratio (0.9-2) Urine Color Yellow Urine Appearance Clear (Clear) Urine pH 5.5 (4.5-7.5) Ur Specific [place] 1.020 (1.000-1.030) Urine Protein Trace H (Negative) Urine Glucose (UA) Trace H (Negative) Urine Ketones Negative (Negative) Urine Blood Trace H (Negative) Urine Nitrite Negative (Negative) Urine Bilirubin Negative (Negative) Urine Urobilinogen Negative (Negative) Ur Leukocyte Esterase Negative (Negative) Urine WBC (Auto) 0-5 (0-5) /hpf Urine RBC (Auto) 0-2 (0-2) /hpf U Hyaline Cast (Auto) 0-2 (0-2) /lpf U Epithel Cells (Auto) 3-5 H (0-2) /hpf Urine Bacteria (Auto) None Seen (None Seen) Urine Comment Administered Medications Sodium Chloride (Nss) 1,000 mls @ 125 mls/hr IV .Q8H ROGELIO Stop: 06/04/25 10:44 Last Admin: 06/04/25 03:02 Dose: 125 mls/hr Documented By: BRITTANIE Insulin Aspart (Insulin Aspart Per Unit Charge) 0 units SC ACHS ROGELIO Stop: 07/04/25 02:44 Last Admin: 06/04/25 04:29 Dose: Not Given Documented By: BRITTANIE Discontinued Medications Sodium Chloride (Nss) 500 mls @ 999 mls/hr IV .Q31M ONE Stop: 06/03/25 23:41 Last Infusion: 06/04/25 00:27 Dose: Infused Documented By: Admin: 06/03/25 23:50 Dose: 999 mls/hr Documented By: BRITTANIE Insulin Glargine (Lantus Per Unit Charge) 8 units SQ ONE ONE Stop: 06/04/25 02:35 Last Admin: 06/04/25 03:01 Dose: 8 units Documented By: BRITTANIE Co-signed By: ISMAEL Insulin Human Regular (Novolin-R Insulin Per Unit Charge) 2 units IV NOW STA Stop: 06/04/25 01:23 Last Admin: 06/04/25 01:38 Dose: 2 units Documented By: BRITTANIE Co-signed By: ISMAEL Imaging Data Radiologist's Impression: Chest X-Ray 06/04/25 00:01 EXAM: XR chest 1V portable CLINICAL HISTORY: Hyperglycemia TECHNIQUE: An X-ray image of the chest was obtained in the AP projection. COMPARISON: Compared to the previous study dated 02/24/2025. FINDINGS: Pulmonary Parenchyma: Subtle bilateral lower lung lobe reticulation and tiny atelectatic bands are more prominent on the left side. The lungs are clear bilaterally. There is no evidence of consolidation, collapse, or focal opacities. No pulmonary nodules are identified. There is no evidence of pleural effusion or pleural thickening. Heart and Mediastinum: The heart size and shape are normal. There is no mediastinal widening or masses. No hilar or mediastinal lymphadenopathy. Bony Thorax: The bony thorax appears intact without fractures or deformities. Tiny calcification is seen related to the left humeral head, suggestive of calcific tendinitis. ECG leads are seen. Soft Tissues: The soft tissues overlying the chest wall are unremarkable. IMPRESSION: Subtle bilateral lower lung lobe reticulation and tiny atelectatic bands are more prominent on the left side, stable. No acute cardiopulmonary abnormalities are identified. Electronically signed by Troy Ruiz 06-04-2025 01:44 AM Discharge Plan Visit Data Chief Complaint: Hyperglycemia Stated Complaint: HIGH BLOOD SUGAR, OVER 400 ED Provider: Vazquez Carvalho ED Midlevel Provider: Eli Tang Discharge Problem: Hyperglycemia due to diabetes mellitus, Chronic kidney disease, stage 4 (severe), Elevated troponin, Urothelial carcinoma Patient Disposition: Admitted As Inpatient Condition: Fair Discharge Instructions Interventions: ED Discharge Assessment Last Done: 06/04/25 03:41
[2025-06-03 23:22] LABS: Base Excess VBG -7.4 mEq/L; HCO3 VBG 18 mmol/L; Oxygen Saturation VBG < 60.0 %; PCO2 VBG 36 mmHg (38-50); PO2 VBG 32 mmHg; pH VBG 7.31 (7.36-7.41)
[2025-06-03 23:26] LABS: Hematocrit (blood only) 26.5 % (42.0-52.0); Hemoglobin 8.7 g/dl (14.0-18.0); Mean Corpuscular Hemoglobin 28.6 pg (25.0-34.0); Mean Corpuscular Volume 87.2 fL (80.0-100.0); Platelet Count 246 K/uL (130-400); RDW Standard Deviation 41.4 fL (36.4-46.3); Red Blood Count 3.04 M/uL (4.70-6.10); White Blood Count 18.47 K/ul (4.8-10.8)
[2025-06-03 23:36] VITALS: TEMP 97.7
[2025-06-03] MEDS: SODIUM CHLORIDE 0.9% 500 ML IV ONE (23:50)
[2025-06-03 23:55] LABS: INR 1.1 (0.9-1.1); Partial Thromboplastin Time 24 Seconds (21-31); Prothrombin Time 11.5 Seconds (9.0-12.0)
[2025-06-03 23:58] LABS: Alanine Aminotransferase 37.0 U/L (7-52); Albumin Globulin Ratio 1.2 (0.9-2); Albumin Level 3.8 gm/dl (3.4-5.0); Alkaline Phosphatase 161.0 U/L (34-104); Anion Gap 9.0 (3-11); Bilirubin,Total 0.4 mg/dl (0.2-1.0); Blood Urea Nitrogen 65.0 mg/dl (6-23); Calcium 8.8 mg/dl (8.6-10.3); Carbon Dioxide 20.0 mmol/L (21-32); Chloride 108.0 mmol/L (98-107); Creatinine Clr Calc Pharmacy 16.9 ml/min; Globulin 3.1 gm/dl (2.5-4.0); Glucose 442.0 mg/dl (70-99(Fasting)); Magnesium 2.2 mg/dl (1.7-2.4); Potassium 4.5 mmol/L (3.5-5.1); Sodium 137.0 mmol/L (136-145); Total Protein 6.9 gm/dl (6.0-8.3)
[2025-06-04 00:03] LABS: Dohle Bodies 1+; Immature Granulocytes # (auto) 1.56 K/uL (0.01-0.20); Immature Granulocytes % (auto) 8.4 %
[2025-06-04] MEDS: NovoLIN-R INSULIN PER UNIT CHARGE IV STA (01:38)
--- NOTE | 2025-06-04 01:44 | XRay Report ---
EXAM: XR chest 1V portable CLINICAL HISTORY: Hyperglycemia TECHNIQUE: An X-ray image of the chest was obtained in the AP projection. COMPARISON: Compared to the previous study dated 02/24/2025. FINDINGS: Pulmonary Parenchyma: Subtle bilateral lower lung lobe reticulation and tiny atelectatic bands are more prominent on the left side. The lungs are clear bilaterally. There is no evidence of consolidation, collapse, or focal opacities. No pulmonary nodules are identified. There is no evidence of pleural effusion or pleural thickening. Heart and Mediastinum: The heart size and shape are normal. There is no mediastinal widening or masses. No hilar or mediastinal lymphadenopathy. Bony Thorax: The bony thorax appears intact without fractures or deformities. Tiny calcification is seen related to the left humeral head, suggestive of calcific tendinitis. ECG leads are seen. Soft Tissues: The soft tissues overlying the chest wall are unremarkable. IMPRESSION: Subtle bilateral lower lung lobe reticulation and tiny atelectatic bands are more prominent on the left side, stable. No acute cardiopulmonary abnormalities are identified. Electronically signed by Troy Ruiz 06-04-2025 01:44 AM
[2025-06-04 01:45] LABS: Appearance Urine Clear (Clear); Bacteria Urine Automated None Seen (None Seen); Cast Urine Automated 0-2 /lpf (0-2); Glucose Urine UA Trace (Negative); RBC Urine Automated 0-2 /hpf (0-2); WBC Urine Automated 0-5 /hpf (0-5)
[2025-06-04] MEDS ORDERED: DEXTROSE 50% 50 ML SYRINGE IV PRN (02:33)
[2025-06-04] MEDS ORDERED: GLUCOSE 10 TAB/TUBE PO PRN (02:33)
[2025-06-04] MEDS ORDERED: CARBOHYDRATES FOR HYPOGLYCEMIA PO PRN (02:33)
[2025-06-04] MEDS ORDERED: GLUCOSE 40% GEL 15 GM TUBE PO PRN (02:33)
[2025-06-04] MEDS ORDERED: GLUCAGON FOR INJ 1 MG VIAL SQ PRN (02:33)
--- NOTE | 2025-06-04 02:55 | History & Physical Report ---
Date of Service June 04, 2025 Assessment & Plan (1) Hyperglycemia due to diabetes mellitus: (2) Chronic kidney disease, stage 4 (severe): (3) Elevated troponin: (4) Status post insertion of drug-eluting stent into left anterior descending (LAD) artery: Plan The patient is an 84-year-old male with past medical history including CKD stage IV, anemia, vitamin D deficiency, renal mass, history of ureteral stent, first- degree AV block, sinus bradycardia, CAD, LAD STEFANIE, dyslipidemia, BPH with LUTS, hypertension, bladder cancer, diabetes mellitus, and lumbar disc herniation with radiculopathy. The patient was referred to the emergency department from the outpatient physician office after finding elevated blood sugars secondary to steroids associated with administration of chemotherapy today. He reports that his glucose was over 400. He typically takes 8 units of glargine in the morning and 4 units of glargine in the evening. In anticipation of the steroids this morning, he took 10 units of glargine, and still had the increased blood sugars noted. Upon arrival to the emergency department, glucose was 442 on BMP, and zpsyb-qe-dcch was 456. He was given a 5 cc bolus of normal saline and 2 units of regular insulin IV from the ED. His sugar gradually decreased to 387, then 358. With the persistence of elevated blood sugar, he was then referred for evaluation and treatment to the [facility]. The patient reports that blood sugars are usually in the 130s in the morning. Hyperglycemia due to diabetes mellitus- Adverse reaction to steroids associated with chemotherapy early in the morning, 06/03 Dsiie-li-lhkv glucose on arrival to the ED was 4056, for which she was given normal saline 500 mL bolus, and regular insulin 2 units IV. Glucose improved to 387, then 358. Patient had increased his morning glargine from 8 to 10 units on the morning of 06/03 in anticipation of A1c elevation associated with steroid use, however, if sugar increase significantly more than he anticipated. He has not had his evening glargine yet. Will double his glargine from 4 to 8 units subcu x 1, which is being given at about 3 AM on 06/04. Place on NSS at 125 mL/h x [address] SSI. Check a CBC with differential, renal function panel magnesium level in the a.m. Check a hemoglobin A1c Resume glargine 8 units subcu in the a.m. and 4 units subcu in the p.m. Elevated troponin/history of STEFANIE to LAD/hypertension- Continue metoprolol succinate 12.5 mg daily. Troponin initially 20.8, with follow-up 28.7, with repeat pending for the a.m. The patient will be admitted to telemetry for serial cardiac enzymes, serial EKG's, cardiac rhythm monitoring and a 2-D echocardiogram with Dopplers. Follows with Dr. Snyder in outpatient setting Anemia- Likely at least in large part secondary to chronic kidney disease Hemoglobin baseline is around 10.2. Hemoglobin was 8.7 on the morning of 06/02, and again on the evening of 06/03. Repeat in the a.m. CKD stage IV- Creatinine 2.82 upon admission, with base 2.75-3.28. He received normal saline 500 mL bolus from the ED Placed on NSS at 125 mL/h x 1 L Repeat laboratories in the a.m. Hyperlipidemia- Continue atorvastatin BPH with LUTS/bladder spasm- Continue dutasteride, tamsulosin, and Myrbetriq History of Present Illness Chief Complaint: The patient was referred to the emergency department from the outpatient physician office after finding elevated blood sugars secondary to steroids associated with administration of chemotherapy today. He reports that his glucose was over 400. He typically takes 8 units of glargine in the morning and 4 units of glargine in the evening. In anticipation of the steroids this morning, he took 10 units of glargine, and still had the increased blood sugars noted. Upon arrival to the emergency department, glucose was 442 on BMP, and dqpie-qz-aidt was 456. He was given a 5 cc bolus of normal saline and 2 units of regular insulin IV from the ED. His sugar gradually decreased to 387, then 358. With the persistence of elevated blood sugar, he was then referred for evaluation and treatment to the [facility]. Primary Care Provider: Pb Han DO The patient is an 84-year-old male with past medical history including CKD stage IV, anemia, vitamin D deficiency, renal mass, history of ureteral stent, first- degree AV block, sinus bradycardia, CAD, LAD STEFANIE, dyslipidemia, BPH with LUTS, hypertension, bladder cancer, diabetes mellitus, and lumbar disc herniation with radiculopathy. The patient was referred to the emergency department from the outpatient physician office after finding elevated blood sugars secondary to steroids associated with administration of chemotherapy today. He reports that his glucose was over 400. He typically takes 8 units of glargine in the morning and 4 units of glargine in the evening. In anticipation of the steroids this morning, he took 10 units of glargine, and still had the increased blood sugars noted. Upon arrival to the emergency department, glucose was 442 on BMP, and clxzo-nf-vinl was 456. He was given a 5 cc bolus of normal saline and 2 units of regular insulin IV from the ED. His sugar gradually decreased to 387, then 358. With the persistence of elevated blood sugar, he was then referred for evaluation and treatment to the [facility]. The patient reports that blood sugars are usually in the 130s in the morning. Allergies Allergy/AdvReac Type Severity Reaction Status Date / Time ciprofloxacin [From Cipro] Allergy Intermediate Blister Verified 06/03/25 23:38 olmesartan Allergy Intermediate hypotension Verified 06/03/25 23:38 /dizziness peach Allergy Intermediate HIVES Verified 06/03/25 23:38 sulfamethoxazole Allergy Intermediate sores Verified 06/03/25 23:38 [From Bactrim] trimethoprim [From Bactrim] Allergy Intermediate sores Verified 06/03/25 23:38 eggplant Allergy Unknown Hives Verified 06/03/25 23:38 amoxicillin AdvReac Severe DIARRHEA Verified 06/03/25 23:38 erythromycin base AdvReac Severe DIARRHEA Verified 06/03/25 23:38 Sulfa (Sulfonamide AdvReac Severe DIARRHEA Verified 06/03/25 23:38 Antibiotics) pembrolizumab [From Keytruda] AdvReac Unknown Diarrhea Verified 06/03/25 23:38 Home Medications Medication Instructions Recorded Confirmed Type cholecalciferol (vitamin D3) 25 2,000 unit PO PM ##0 11/12/16 06/03/25 History mcg (1,000 unit) capsule coenzyme Q10 200 mg capsule 200 mg PO QAM ##0 01/14/18 06/03/25 History eeeeflfg-ihly-yfptf acid 200 1 tab PO BID 06/30/20 06/03/25 History mcg-lycopene 5 mg-boron 250 mcg tablet (Bladder 2.2) aspirin 81 mg tablet,delayed 81 mg PO HS 04/16/23 06/03/25 History release (Iraj Low Dose Aspirin) econazole nitrate 1 % topical cream 1 applic topical BID PRN Rash #30 04/17/24 06/03/25 Rx grams dutasteride 0.5 mg capsule 0.5 mg PO HS #90 caps 06/03/24 06/03/25 Rx tamsulosin 0.4 mg capsule 0.8 mg (2 x 0.4 mg) PO HS #180 caps 06/03/24 06/03/25 Rx atorvastatin 80 mg tablet (Lipitor) 80 mg PO PM #90 tabs 08/10/24 06/03/25 Rx nitroglycerin 400 mcg/spray 400 mcg sublingual DAILY PRN 08/10/24 06/03/25 Rx translingual aerosol Angina #4.1 grams metoprolol succinate 25 mg 12.5 mg (1/2 x 25 mg) PO DAILY #45 09/10/24 06/03/25 Rx tablet,extended release 24 hr tabs desonide 0.05 % topical cream 1 applic topical BID PRN FLARE UPS 12/15/24 06/03/25 History diphenoxylate-atropine 2.5 1 tab PO DIRECTED PRN Diarrhea 12/15/24 06/03/25 History mg-0.025 mg tablet (Lomotil) famotidine 40 mg tablet 40 mg PO BID 12/15/24 06/03/25 History insulin glargine 100 unit/mL (3 0 unit subcut BID 12/15/24 06/03/25 History mL) subcutaneous pen (Lantus Solostar U-100 Insulin) Myrbetriq 25 mg tablet,extended 25 mg PO QDL #90 tabs 03/30/25 06/03/25 Rx release (mirabegron) lansoprazole 30 mg capsule,delayed 30 mg PO QAM #90 caps 04/01/25 06/03/25 Rx release mometasone 0.1 % topical cream 1 applic topical BID #45 grams 04/19/25 06/03/25 Rx olanzapine 2.5 mg tablet 2.5 mg PO DIRECTED PRN WITH 05/14/25 06/03/25 History CHEMO oxycodone 5 mg tablet 5 mg PO Q6H PRN Pain 05/14/25 06/03/25 History Past Med/Surg History Problem List (Updated 06/04/25 @ 03:03 by Gabriel Rice MD) Hyperglycemia due to diabetes mellitus Diarrhea Malnutrition Chronic kidney disease, stage 4 (severe) Anemia Vitamin D deficiency Acute kidney injury Stage 3b chronic kidney disease Renal mass S/P ureteral stent placement (Acute) Renal hematoma (Acute) First degree atrioventricular block by electrocardiogram Sinus bradycardia by electrocardiogram History of colon polyps Encounter for pre-operative examination Antiplatelet or antithrombotic long-term use Presence of drug coated stent in LAD coronary artery CAD (coronary artery disease) Seborrheic keratosis Multiple benign nevi Malignant neoplasm of bladder, unspecified Lentigines Impotence, organic Hemangioma of skin H/O esophageal reflux Erectile dysfunction Dysuria Dyslipidemia Calcium oxalate crystals in urine 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 Atypical nevi Atherosclerosis of coronary artery Angioma Actinic keratosis Bifascicular block dating back to at least 2013 stress test (RBBB/LAFB)* Hypertension Bladder cancer S/P surgery, BCG treatment (finished recent rfound 03/2024), chemo (completed 08/2018) Urinary retention UTI (urinary tract infection) (Acute) Pneumonia Heart disease Diabetes Herniation of lumbar intervertebral disc with radiculopathy Face lacerations Medical History (Updated 06/04/25 @ 03:03 by Gabriel Rice MD) Status post insertion of drug-eluting stent into left anterior descending (LAD) artery First degree AV block follows with Dr. Snyder History of COVID-27 Aug 2023 Erectile dysfunction Dyslipidemia Hypertension Hx of bladder cancer S/P surgery, BCG treatment (finished 03/31/24) and chemo Damon's esophagus Hearing deficit B/L BARAJAS History of dysplastic nevus Coronary artery disease 06/2019 - STEFANIE x 1, 1997- stent x 1 BPH (benign prostatic hyperplasia) GERD (gastroesophageal reflux disease) controlled, stable, denies issues laying flat Diabetes mellitus, type 2 NIDDM Back pain with radiation controlled per pt Surgical History History of tooth extraction History of tonsillectomy S/P ureteral stent placement since removed History of inguinal hernia repair bilat History of surgery UMBILICAL FISTULA History of surgery TURBT 04/02/2019: LMA #5, no issues reported on anesthesia progress note; also TURBT 12/13/21; multiple TURBT; pt had TURBT/TURP [facility] 07/20/21: MAC without issue History of back surgery lumbar > fusion History of esophagogastroduodenoscopy (EGD) History of colonoscopy History of cardiac cath 06/2019 - [facility] - + stress test - STEFANIE x 1 2010- no stents 1997- stent x 1 AT [facility] History of cystoscopy Family History (Updated 04/27/25 @ 16:59 by Kristi Miller RN) Brother History of anesthesia reaction HICCUPS Hearing loss Hypertension Heart disease Testicular cancer Allergies Coronary heart disease Diabetes Father Heart disease Hypertension Mother Heart disease Uncle Heart disease Cancer Hypertension Nephrolithiasis Denies family history of Clotting disorder Social History (Updated 04/27/25 @ 14:02 by Kristi Miller, KATHERINE) Smoking Status: Never smoker Second Hand Exposure: No; Do You Dip or Chew Tobacco: No; Hx Alcohol Use: No Hx Substance Use: No Preferred Language: Jamaican Communication Ability: Effective Visual Impairment: No Limitations Hearing Ability: Normal 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 Beliefs That Will Affect Care: Denominational Denominational Beliefs: Catholic > no pork marital status: Current Living Situation: Spouse current occupational status: retired How many Children do You have: 2 How many Children do You have Comment: 1 age 50 and 1 (2007) Feels Safe at Home: Yes Diet: other and regular Diet Comment: no pork caffeine: Yes (1 cup daily) during the past year weight has: decreased > 10 lbs Dental Care, Regularly: Yes Physical Activity Frequency: Does not Exercise Seatbelt Use: always Do you think of yourself as: straight/heterosexual Gender Identity: Male Assistive Devices: Glasses and Hearing Aid - Bilateral Review of Systems Review of Systems: The patient denies chest pain, palpitations, shortness of breath, dyspnea on exertion, cough, lower extremity swelling, sore throat, fevers, chills, sweats, weight change, fatigue, nausea, vomiting, diarrhea , constipation, abdominal pain, pelvic pain, blood in urine or stool, dysuria, urinary frequency or urgency, lightheadedness, dizziness, headache, memory loss, loss of consciousness, rash, abnormal bruising or bleeding, imbalance, focal or generalized weakness, numbness or tingling in arms or legs, generalized arthralgias or myalgias, back or neck pain, or night sweats. The review of systems is otherwise negative other than for that already noted above, and at least 10 systems have been reviewed. Physical Exam Physical Exam: The patient is awake, alert and oriented 3, well developed and well nourished, normocephalic and atraumatic, lying in bed and in no acute distress. HEENT--PERRL, EOMI, mucous membranes and oropharynx dry. Neck--supple. No JVD. No bruits. Thyroid normal, trachea midline, no adenopathy. Heart--normal S1 and S2. No murmurs, rubs or gallops. Lungs--clear bilaterally, no respiratory distress, no accessory muscle use. Abdomen--normal bowel sounds and soft. Nontender. Nondistended, no hernias or masses, no organomegaly. Extremities--no cyanosis or clubbing. No edema. There are good distal pulses b/l. Dermatologic--normal skin turgor, normal color, no abnormal lymph nodes, no rash. Neurologic--cranial nerves II through XII grossly intact. Rheumatologic--normal range of motion. Psychiatric--normal affect. Results & Data Results & Data Vital Signs (Past 12 Hours) Vital Signs Temp Pulse Pulse Resp BP BP Pulse Ox 06/04/25 02:00 36.5 C 63 17 110/52 L 100 06/04/25 00:00 36.5 C 64 18 132/62 97 06/03/25 23:00 66 18 99 06/03/25 23:00 36.5 C 66 18 133/95 99 06/03/25 22:50 36.2 C L 79 17 119/63 98 O2 Del Method 06/04/25 02:00 Room Air 06/04/25 00:00 Room Air 06/03/25 23:00 Room Air 06/03/25 23:00 Room Air 06/03/25 22:50 Room Air Laboratory Results Laboratory Results WBC 18.47 K/ul (4.8-10.8) H 06/03/25 22:56 RBC 3.04 M/uL (4.70-6.10) L 06/03/25 22:56 Hgb 8.7 g/dl (14.0-18.0) L 06/03/25 22:56 Hct 26.5 % (42.0-52.0) L 06/03/25 22:56 MCV 87.2 fL (80.0-100.0) 06/03/25 22:56 MCH 28.6 pg (25.0-34.0) 06/03/25 22:56 MCHC 32.8 g/dL (32.0-36.0) 06/03/25: RDW Std Deviation 41.4 fL (36.4-46.3) 06/03/25 22: RDW Coeff of Lissette 14.0 % (11.5-14.5) 06/03/25: Plt Count 246 K/uL (130-400) 06/03/25 22:56 MPV 9.9 fL (9.4-12.4) 06/03/25:56 Immature Gran % (Auto) 8.4 % 06/03/25: Neut % (Auto) 85.5 % 06/03/25 22:56 Lymph % (Auto) 3.7 % 06/03/25:56 Josephine % (Auto) 2.2 % 06/03/25 22:56 Eos % (Auto) 0.0 % 06/03/25:56 Baso % (Auto) 0.2 % 06/03/25:56 Neut # (Auto) 15.78 K/uL (1.40-6.50) H 06/03/25 22:56 Lymph # (Auto) 0.68 K/uL (1.20-3.40) L 06/03/25 22:56 Josephine # (Auto) 0.41 K/uL (0.11-0.59) 06/03/25: Eos # (Auto) 0.00 K/uL (0.00-0.50) 06/03/25 22:56 Baso # (Auto) 0.04 K/uL (0.00-0.20) 06/03/25 22: Immature Gran # (Auto) 1.56 K/uL (0.01-0.20) H 06/03/25:56 Absolute Nucleated RBC 0.02 K/uL (0.00-0.12) 06/03/25: Nucleated RBC % (auto) 0.1 % 06/03/25:56 Dohle Bodies 1+ 06/03/25 22:56 PT 11.5 Seconds (9.0-12.0) 06/03/25 22:56 INR 1.1 (0.9-1.1) 06/03/25 22:56 APTT 24 Seconds (21-31) 06/03/25 22:56 PTT Ratio 0.9 06/03/25 22:56 VBG pH 7.31 (7.36-7.41) L 06/03/25 22:56 VBG pCO2 36 mmHg (38-50) L 06/03/25 22:56 VBG pO2 32 mmHg 06/03/25 22:56 VBG HCO3 18 mmol/L 06/03/25 22:56 VBG O2 Saturation < 60.0 % 06/03/25 22:56 VBG Base Excess -7.4 mEq/L 06/03/25 22:56 Sodium 137 mmol/L (136-145) 06/03/25 22:56 Potassium 4.5 mmol/L (3.5-5.1) 06/03/25 22:56 Chloride 108 mmol/L (98-107) H 06/03/25 22:56 Carbon Dioxide 20 mmol/L (21-32) L 06/03/25 22:56 Anion Gap 9 (3-11) 06/03/25 22:56 BUN 65 mg/dl (6-23) H 06/03/25 22:56 Creatinine 2.82 mg/dl (0.6-1.4) H D 06/03/25 22:56 Est Cr Clr Drug Dosing 16.9 ml/min 06/03/25 22:56 eGFR 21.26 06/03/25 22:56 BUN/Creatinine Ratio 23.0 (10-20) H 06/03/25 22:56 Glucose 442 mg/dl (70-99(Fasting)) H* 06/03/25 22:56 POC Glucose 358 mg/dl (70-99) H* 06/04/25 02:08 Calcium 8.8 mg/dl (8.6-10.3) 06/03/25 22:56 Magnesium 2.2 mg/dl (1.7-2.4) 06/03/25 22:56 Total Bilirubin 0.4 mg/dl (0.2-1.0) 06/03/25 22:56 AST 29 U/L (13-39) 06/03/25 22:56 ALT 37 U/L (7-52) 06/03/25 22:56 Alkaline Phosphatase 161 U/L (34-104) H 06/03/25 22:56 Troponin I High Sens 28.7 pg/ml (0-20) H 06/04/25 01:20 Total Protein 6.9 gm/dl (6.0-8.3) 06/03/25 22:56 Albumin 3.8 gm/dl (3.4-5.0) 06/03/25 22:56 Globulin 3.1 gm/dl (2.5-4.0) 06/03/25 22:56 Albumin/Globulin Ratio 1.2 (0.9-2) 06/03/25 22:56 Urine Color Yellow 06/04/25 01:19 Urine Appearance Clear (Clear) 06/04/25 01:19 Urine pH 5.5 (4.5-7.5) 06/04/25 01:19 Ur Specific [place] 1.020 (1.000-1.030) 06/04/25 01:19 Urine Protein Trace (Negative) H 06/04/25 01:19 Urine Glucose (UA) Trace (Negative) H 06/04/25 01:19 Urine Ketones Negative (Negative) 06/04/25 01:19 Urine Blood Trace (Negative) H 06/04/25 01:19 Urine Nitrite Negative (Negative) 06/04/25 01:19 Urine Bilirubin Negative (Negative) 06/04/25 01:19 Urine Urobilinogen Negative (Negative) 06/04/25 01:19 Ur Leukocyte Esterase Negative (Negative) 06/04/25 01:19 Urine WBC (Auto) 0-5 /hpf (0-5) 06/04/25 01:19 Urine RBC (Auto) 0-2 /hpf (0-2) 06/04/25 01:19 U Hyaline Cast (Auto) 0-2 /lpf (0-2) 06/04/25 01:19 U Epithel Cells (Auto) 3-5 /hpf (0-2) H 06/04/25 01:19 Urine Bacteria (Auto) None Seen (None Seen) 06/04/25 01:19 Urine Comment 06/04/25 01:19 Impressions Chest X-Ray 06/04/25 00:01 EXAM: XR chest 1V portable CLINICAL HISTORY: Hyperglycemia TECHNIQUE: An X-ray image of the chest was obtained in the AP projection. COMPARISON: Compared to the previous study dated 02/24/2025. FINDINGS: Pulmonary Parenchyma: Subtle bilateral lower lung lobe reticulation and tiny atelectatic bands are more prominent on the left side. The lungs are clear bilaterally. There is no evidence of consolidation, collapse, or focal opacities. No pulmonary nodules are identified. There is no evidence of pleural effusion or pleural thickening. Heart and Mediastinum: The heart size and shape are normal. There is no mediastinal widening or masses. No hilar or mediastinal lymphadenopathy. Bony Thorax: The bony thorax appears intact without fractures or deformities. Tiny calcification is seen related to the left humeral head, suggestive of calcific tendinitis. ECG leads are seen. Soft Tissues: The soft tissues overlying the chest wall are unremarkable. IMPRESSION: Subtle bilateral lower lung lobe reticulation and tiny atelectatic bands are more prominent on the left side, stable. No acute cardiopulmonary abnormalities are identified. Electronically signed by Troy Ruiz 06-04-2025 01:44 AM Code Status & VTE Plan Code Status Full code VTE Prophylaxis Plan VTE Prophylaxis will be ordered: Yes PG Care Time/CCT Total # of Minutes Spent Total Time Spent with Patient: Total time spent is greater than 50% in coordination of care (as documented) at patient's floor/unit and/or counseling patient: Coding Level of Care Code 44895 INT INP/OBS CARE 3/75MIN Diagnoses Hyperglycemia due to diabetes mellitus E11.65 Chronic kidney disease, stage 4 (severe) N18.4 Elevated troponin R79.89 Status post insertion of drug-eluting stent into left anterior descending (LAD) artery Z95.5
[2025-06-04] MEDS: LANTUS PER UNIT CHARGE SQ ONE (03:01)
[2025-06-04] MEDS: SODIUM CHLORIDE 0.9% 1,000 ML IV SCH (03:02)
[2025-06-04] MEDS ORDERED: ACETAMINOPHEN 325 MG TAB PO PRN (03:40)
[2025-06-04] MEDS ORDERED: ECONAZOLE NITRATE 1% CRM 15 GM TUBE TOP PRN (03:40)
[2025-06-04] MEDS ORDERED: ONDANSETRON INJ 2 MG/ML 2 ML VIAL IV PRN (03:40)
[2025-06-04] MEDS ORDERED: DIPHENOXYLATE/ATROPINE 2.5/0.025MG TAB PO PRN (03:40)
[2025-06-04] MEDS ORDERED: OLANZAPINE 2.5 MG TAB PO PRN (03:40)
[2025-06-04 03:59] LABS: Hematocrit (blood only) 22.9 % (42.0-52.0); Hemoglobin 7.7 g/dl (14.0-18.0); Mean Corpuscular Hemoglobin 29.3 pg (25.0-34.0); Mean Corpuscular Volume 87.1 fL (80.0-100.0); Platelet Count 218 K/uL (130-400); RDW Standard Deviation 41.2 fL (36.4-46.3); Red Blood Count 2.63 M/uL (4.70-6.10); White Blood Count 20.80 K/ul (4.8-10.8)
[2025-06-04 04:27] LABS: Albumin Level 3.2 gm/dl (3.4-5.0); Anion Gap 8.0 (3-11); Blood Urea Nitrogen 64.0 mg/dl (6-23); Calcium 8.3 mg/dl (8.6-10.3); Carbon Dioxide 18.0 mmol/L (21-32); Chloride 111.0 mmol/L (98-107); Creatinine Clr Calc Pharmacy 18.5 ml/min; Glucose 308.0 mg/dl (70-99(Fasting)); Magnesium 2.2 mg/dl (1.7-2.4); Potassium 4.4 mmol/L (3.5-5.1); Sodium 137.0 mmol/L (136-145)
[2025-06-04] MEDS: INSULIN ASPART PER UNIT CHARGE SC SCH (04:29)
[2025-06-04] MEDS ORDERED: TRIAMCINOLONE ACET 0.025% CR 15 GM TUBE TOP PRN (04:39)
[2025-06-04 04:47] LABS: Immature Granulocytes # (auto) 1.46 K/uL (0.01-0.20); Immature Granulocytes % (auto) 7.0 %; RBC Morphology Unremarkable
[2025-06-04] MEDS ORDERED: NITROGLYCERIN 60 SPRAYS/4.9 GM SPRAY SL PRN (05:07)
--- NOTE | 2025-06-04 06:58 | Emergency Department Note ---
ED Visit Note I was consulted in regards to the patient's presentation and plan of care by the Advanced Practice Provider. I engaged in a detailed/meaningful discussion with the Advanced Practice Provider in regards to this patient's workup and plan of care. I performed a substantiative portion of the medical decision making following discussion with the Advanced Practice Provider. Please see the Advanced Practice Provider's separate documentation for full details of the patient's visit. I agree with the assessment and plan of Eli Tang PA-C. Vazquez Carvalho, DO Emergency Medicine .
[2025-06-04 08:01] LABS: Hemoglobin A1C 7.9 % (4.5-5.6)
[2025-06-04 08:19] VITALS: RESP 16
[2025-06-04] MEDS: FAMOTIDINE 40 MG TABLET PO SCH (08:21)
[2025-06-04] MEDS: METOPROLOL SUCC 25MG EXT REL TAB PO SCH (08:21)
[2025-06-04] MEDS: TRIAMCINOLONE ACET 0.1% CR 15 GM TUBE TOP SCH (08:22)
[2025-06-04] MEDS: LANTUS PER UNIT CHARGE SQ SCH (08:25)
[2025-06-04] MEDS ORDERED: [UNRECOGNIZED DRUG - OTHER] PO SCH (09:00)
[2025-06-04] MEDS ORDERED: NON-FORMULARY MEDICATION (Coenzyme Q10 200 mg Capsule) PO SCH (09:00)
[2025-06-04 11:13] VITALS: O2SAT 97
[2025-06-04 11:15] VITALS: BP 121/48; PULSE 56
[2025-06-04] MEDS ORDERED: VIBEGRON 75 MG TAB PO SCH (11:30)
--- NOTE | 2025-06-04 19:15 | XCELERA ---
[id number] [id number]
[2025-06-04] MEDS ORDERED: ATORVASTATIN 40 MG TAB PO SCH (21:00)
[2025-06-04] MEDS ORDERED: ASPIRIN 81 MG ECTAB PO SCH (21:00)
[2025-06-04] MEDS ORDERED: TAMSULOSIN HCL 0.4 MG CAP PO SCH (21:00)
[2025-06-04] MEDS ORDERED: FINASTERIDE 5 MG TAB PO SCH (21:00)
[2025-06-04] MEDS ORDERED: CHOLECALCIFEROL 25 MCG (1000 UNITS) TAB PO SCH (21:00)
--- NOTE | 2025-06-05 08:55 | Electrocardiogram Report ---
Test Reason : Blood Pressure : */* mmHG Vent. Rate : 63 BPM Atrial Rate : 63 BPM P-R Int : 214 ms QRS Dur : 142 ms QT Int : 420 ms P-R-T Axes : 62 -60 65 degrees QTcB Int : 429 ms Sinus rhythm with sinus arrhythmia with 1st degree A-V block Right bundle branch block Left anterior fascicular block Bifascicular block Septal infarct , age undetermined Abnormal ECG When compared with ECG of 15-Dec-2024 15:16, Septal infarct is now Present Confirmed by Yefri Whitehead ([id number]) on 06/05/2025 8:54:42 AM Referred By: REFERRED SELF Confirmed By: Yefri Whitehead
--- NOTE | 2025-06-05 15:14 | Discharge Summary ---
Discharge Summary Date of Service June 04, 2025 Principal Dx & Hospital Course #1 = Principal Diagnosis (1) Urothelial carcinoma: (2) Adverse effect of anabolic steroid: Plan In summary this is an 84-year-old male who presented to the [facility] at the behest of their spouse due to persistent hyperglycemia after receiving a dose of intravenous corticosteroids as part of their pharmacologic cancer therapy on the day previous to presentation. This was not associated with any significant additional metabolic abnormalities such as diabetic ketoacidosis, hyperosmolar hyperglycemic syndrome, or other elec trolyte/acid-base abnormalities. The patient's serum glucose rapidly corrected without associated symptoms with adequate insulin therapy. We discussed at bedside the importance of adjusting their insulin regimen as needed when administered steroids in the outpatient setting; based on the patient's current insulin regimen would recommend increasing her evening dose of basal insulin to 6 units on days when they receive steroids; this should be further discussed with the patient's PCP and oncologist in the outpatient setting yojana to a "sick day" plan which is recommended for diabetic patients. The patient has no acute complaints or concerns on the day of discharge. They are understanding of their medical conditions, the need for better glycemic control to prevent future hospitalizations with greater complications such as those discussed above. Admission HPI Per Admitting Provider The patient is an 84-year-old male with past medical history including CKD stage IV, anemia, vitamin D deficiency, renal mass, history of ureteral stent, first- degree AV block, sinus bradycardia, CAD, LAD STEFANIE, dyslipidemia, BPH with LUTS, hypertension, bladder cancer, diabetes mellitus, and lumbar disc herniation with radiculopathy. The patient was referred to the emergency department from the outpatient physician office after finding elevated blood sugars secondary to steroids associated with administration of chemotherapy today. He reports that his glucose was over 400. He typically takes 8 units of glargine in the morning and 4 units of glargine in the evening. In anticipation of the steroids this morning, he took 10 units of glargine, and still had the increased blood sugars noted. Upon arrival to the emergency department, glucose was 442 on BMP, and [id number] was 456. He was given a 5 cc bolus of normal saline and 2 units of regular insulin IV from the ED. His sugar gradually decreased to 387, then 358. With the persistence of elevated blood sugar, he was then referred for evaluation and treatment to the [place] hospitalist service. The patient reports that blood sugars are usually in the 130s in the morning. Discharge Exam General: Elderly male in no acute distress Vital Signs: Reviewed HEENT: Moist mucous membranes; periorbital fat loss with temporal wasting Pulmonary: Symmetric chest wall rise without restriction; clear to auscultation bilaterally Cardiovascular: Regular rate and rhythm without murmurs, rubs, or gallops; S1 and S2 normal; right radial pulse 2+ Neurologic: Cranial nerves II through XII grossly intact; no discernible focal weakness no paresthesia Discharge Plan Discharge Items Patient Disposition: Home - Self-Care Reason For Visit: HYPERGLYCEMIA IN DM Discharge Diagnosis: Hyperglycemia secondary to corticosteroid prescription Condition on Discharge: Fair Activity: Per Instructions section Non-emergency contact: Primary Care Provider and Oncologist Call non-emergency contact if: you have any medication questions Follow-up/Referrals: Pb Han, [Primary Care Provider] - Diet: Carb Consistent or DM2 and Low Fat Addtl Attending Provider Instructions: You were admitted to [facility] for elevated serum glucose measures after administration of corticosteroids in the outpatient setting without associated symptomatology. After administration of appropriate insulin dosing, your blood sugar has improved. Recommend continued use of your home insulin therapy with titration based on discussion with your primary care physician if future corticosteroids are required. You are found to have an incidentally elevated troponin of 20.9 which has down trended steadily; there is been no significant ischemic change in your EKG obtained the emergency department. At this time there is no concern for acute ischemic event that would require further hospitalization and inpatient care. Thank you for choosing [facility] as your healthcare provider. Pending Studies at Discharge: Yes Studies:: TTE Stand-Alone Forms: My [facility] Medications and DC Order Prescriptions: Continued cholecalciferol (vitamin D3) 1,000 unit Capsule 2,000 unit PO PM Qty: 0 coenzyme Q10 200 mg Capsule 200 mg PO QAM Qty: 0 tamsulosin 0.4 mg capsule 0.8 mg PO HS Qty: 180 3RF dutasteride 0.5 mg capsule 0.5 mg PO HS Qty: 90 3RF atorvastatin [Lipitor] 80 mg tablet 80 mg PO PM Qty: 90 3RF nitroglycerin 400 mcg/spray aerosol,spray 400 mcg Sublingual DAILY PRN (Reason: Angina) Qty: 4.1 2RF metoprolol succinate 25 mg tablet extended release 24 hr 12.5 mg PO DAILY Qty: 45 3RF mirabegron [Myrbetriq] 25 mg tablet extended release 24 hr 25 mg PO QDL Qty: 90 3RF lansoprazole 30 mg capsule,delayed release(DR/EC) 30 mg PO QAM Qty: 90 3RF aspirin [Iraj Low Dose Aspirin] 81 mg tablet,delayed release (DR/EC) 81 mg PO HS econazole nitrate 1 % cream 1 applic TOP BID PRN (Reason: Rash) Qty: 30 1RF Rx Instructions: Apply to the right foot twice daily x 3 weeks as directed for flaring. mometasone 0.1 % cream 1 applic topical BID Qty: 45 0RF Rx Instructions: Apply to areas of the trunk and extremities twice daily x 2 weeks as directed. olanzapine 2.5 mg tablet 2.5 mg PO DIRECTED PRN (Reason: WITH CHEMO) Rx Instructions: TAKES NIGHT OF CHEMO, THEN X 3 DAYS AFTER. oxycodone 5 mg tablet 5 mg PO Q6H PRN (Reason: Pain) Bladder 2.2 200-5-250 mcg-mg-mcg Tablet 1 tab PO BID famotidine 40 mg tablet 40 mg PO BID diphenoxylate-atropine [Lomotil] 2.5-0.025 mg Tablet 1 tab PO DIRECTED PRN (Reason: Diarrhea) insulin glargine [Lantus Solostar U-100 Insulin] 100 unit/mL (3 mL) Insulin Pen 0 unit SUBCUT BID Rx Instructions: 06/03/25 TOOK 10 UNITS AM, THEN 6 UNITS PM. NORMALLY TAKES 8 UNITS QAM, THEN 4 UNITS QPM desonide 0.05 % cream 1 applic topical BID PRN (Reason: FLARE UPS) Rx Instructions: Apply to area of the right buttock twice daily for up to 10 days as needed for flaring. Discharge Orders: Discharge Order (Routine); Ordered 06/04/25 Ordered By: Moe Cartwright/Other Patient Handouts: Diabetes: Sick-Day Plan, Diabetes Manage Stress Admission Data Admit Date/Time: 06/04/25 02:54 Attending Provider: Moe Smith Admit Provider: Gabriel Rice Primary Care Provider: Pb Han Other Providers: Gabriel Rice Other Interventions: Discharge Summary Assessment (RN) Last Done: 06/04/25 11:13 Hospital Stay Data Consultations 06/04/25 02:14 ED Decision to Admit Stat Pending Results Patient Have Any Pending Studies at Discharge: Yes Discharge Instructions Given to Patient (Per Discharging Provider) You were admitted to [facility] for elevated serum glucose measures after administration of corticosteroids in the outpatient setting without associated symptomatology. After administration of appropriate insulin dosing, your blood sugar has improved. Recommend continued use of your home insulin therapy with titration based on discussion with your primary care physician if future corticosteroids are required. You are found to have an incidentally elevated troponin of 20.9 which has downtrended steadily; there is been no significant ischemic change in your EKG obtained the emergency department. At this time there is no concern for acute ischemic event that would require further hospitalization and inpatient care. Thank you for choosing [facility] as your healthcare provider. Total Time Total Time Spent Total Time Spent (In Minutes): I personally spent 75 minutes in the coordination the patient's discharge including review of the patient's outpatient chart, inpatient plan of care and documentation, laboratory assessment, medication reconciliation, bedside evaluation and discussion of potential plans of care with both inpatient and outpatient options outlined Coding Level of Care Code INP/OBS EV SAME DAY LV 2,70MIN Diagnoses Urothelial carcinoma C68.9 Adverse effect of anabolic steroid T38.7X5A
== END 2025-06-04 11:13 | disposition home or self-care (01) ==
LOC: EDINP 22:48 → ED 22:48 → SUATTDRO 06-04 02:54 → EDINP 06-04 03:41
DX: D63.1 Anemia in chronic kidney disease; D09.0 Carcinoma in situ of bladder; E11.22 Type 2 diabetes mellitus with diabetic chronic kidney disease; Z79.899 Other long term (current) drug therapy; R79.89 Other specified abnormal findings of blood chemistry; Z79.82 Long term (current) use of aspirin; E55.9 Vitamin D deficiency, unspecified; I12.9 Hypertensive chronic kidney disease with stage 1 through stage 4 chronic kidney disease, or unspecified chronic kidney disease; N18.4 Chronic kidney disease, stage 4 (severe); N32.89 Other specified disorders of bladder; E78.5 Hyperlipidemia, unspecified; I25.10 Atherosclerotic heart disease of native coronary artery without angina pectoris; Z88.8 Allergy status to other drugs, medicaments and biological substances; M51.16 Intervertebral disc disorders with radiculopathy, lumbar region; Z91.018 Allergy to other foods; Z88.2 Allergy status to sulfonamides; T38.0X5A Adverse effect of glucocorticoids and synthetic analogues, initial encounter; N40.1 Benign prostatic hyperplasia with lower urinary tract symptoms; Z95.5 Presence of coronary angioplasty implant and graft; E11.65 Type 2 diabetes mellitus with hyperglycemia; R00.1 Bradycardia, unspecified; Z79.4 Long term (current) use of insulin; Z88.1 Allergy status to other antibiotic agents; I44.0 Atrioventricular block, first degree